=== PATIENT | male | born 1970 | race Caucasian/White ===

== ENCOUNTER 2019-03-19 07:03 | Inpatient (IN) | payer BC, SELFPAY ==
[2019-03-19] VITALS (40 sets, daily range): BP systolic 112–149; BP diastolic 67–108; PULSE 61–85; RESP 10–22; TEMP 36.4–37.4; O2SAT 95–99; BMI 29.6; BMI 28.5; BMI 28.6; BMI 29.5
--- NOTE | 2019-03-19 07:17 | EKG12_ITS ---
Test Reason : CP Blood Pressure : / mmHG Vent. Rate : 072 BPM Atrial Rate : 072 BPM P-R Int : 148 ms QRS Dur : 092 ms QT Int : 424 ms P-R-T Axes : 055 013 069 degrees QTc Int : 464 ms Sinus rhythm with occasional and consecutive Premature ventricular complexes ST elevation consider anterior injury or acute infarct ACUTE ME / STEMI Abnormal ECG No previous ECGs available Confirmed by RUPERT SEGAL ([id number]), mapping editor ADRIANNA LINDSEY ([id number]) on 04/02/2019 2:11:13 PM Referred By: Scarlet Parsons Confirmed By:RUPERT SEGAL
[2019-03-19 07:24] LABS: Absolute Lymphocyte Count 3.65 X10^3/uL (0.83-4.51); Absolute Neutrophil Count 3.5 X10^3/uL (2.0-7.7); Basophil# 0.07 X10^3/uL; Basophil% 0.9 % (0-1); Eosinophil# 0.16 X10^3/uL; Hematocrit 48.3 % (40-54); Hemoglobin 15.5 g/dL (13.0-16.5); Lymphocyte # 3.65 X10^3/ul (4.0); Lymphocyte % 44.7 % (19-41); Mean Corp Hgb Conc 32.1 g/dL (32-36); Mean Corpuscular Volume 93.6 fL (80-94); Mean Platelet Vol. 11.5 fl (6.2-12.0); Monocyte# 0.73 X10^3/uL; Monocyte% 8.9 % (0-10); NRBC Flagged by Analyzer 0 % (0-5); Neutrophil # 3.52 X10^3/uL (2.7-7.7); Platelet Count 230 K/mm3 (150-450); RBC Distribution Width CV 11.9 % (11.6-14.6); RBC Distribution Width SD 41.1 fl (35.1-43.9); Red Blood Count 5.16 M/mm3 (4.6-6.2); White Blood Count 8.2 K/mm3 (4.4-11.0)
--- NOTE | 2019-03-19 07:29 | ED.DCSUM_ITS ---
History of Present Illness Chief Complaint: Chest Pain Informant: Patient, Family Current Severity: Moderate Maximum Severity: Moderate Narrative: Patient presented with chest pain after running. He was running for about 3 miles developed chest pain and just could not run anymore. He has no back pain he has no radiation he has burning in the lower retrosternal region. He has no leg or calf pain. Past Medical History - Allergies and Home Meds Allergies/Adverse Reactions: Allergies No Known Allergies Allergy (Verified 03/19/19 07:04) Primary Care Physician: Lefty Day MD [Primary Care Provider] - Past Medical History: None Surgical History: no surgical history Lives: Spouse/ Significant Other Smoking Status: Never smoker Review of Systems All systems negative except as indicated General: Denies: Fever Eyes: Denies: Visual changes - bilaterally Cardiovascular: Reports: Chest pain. Denies: Heart racing Respiratory: Reports: Dyspnea. Denies: Cough, Sputum Gastrointestinal: Denies: Abdominal pain, Nausea, Vomiting Musculoskeletal: Denies: Myalgias, Arthralgias Skin: Denies: Abscess Neurological: Denies: Weakness Endocrine: Denies: Polydipsia Hematologic: Denies: Easy bruising Allergy: Denies: Swelling of the mouth Physical Exam Vital Signs/Narrative: Vital Signs Temp Pulse Resp Pulse Ox 03/19/19 07:04 97.5 F L 61 20 H 97 General: Well nourished, Well developed Head: Normocephalic, Atraumatic ENT: Moist mucous membranes, No rhinorrhea Neck: Supple Cardiovascular: Regular rate, Regular rhythm Respiratory: No distress, CTA bilaterally Abdomen: Soft, Nontender Back: Nontender Extremities: Nontender, No edema Skin: Normal color, No rash Neurological: Alert, Oriented x3 Psychological: Normal affect Diagnostic/Tx/Re-eval - Rhythm Strip Rhythm Strip: Sinus Rhythm Rate: 63 Ectopy: None - EKG Initial EKG Interpretation: Sinus Rhythm, - - Normal AK and QTc interval. Slight ST elevation in lead III. No reciprocal changes. Does not meet criteria for ST elevation [place] Follow-up EKG Interpretation: Sinus Rhythm, - - Rate 72. There is some artifact, however there is ST elevation in leads II, III and aVF as well as V4 V5 and V6 there are some reciprocal's in lead I and aVL although it is somewhat difficult secondary to artifact. Patient does meet criteria for ST elevation myocardial infarction. - Medical Decision Making Patient presents with chest pain that is burning after running. This is concerning, the initial EKG was somewhat abnormal, however looking at the rhythm strip there are some ST elevation in lead II. Therefore subsequent EKGs were done because of the running outside in the cold patient was shivering quite a bit and there is quite a bit of artifact. However we did get an EKG that although still short artifact did show an ST elevation myocardial infarction. [facility]per was activated. Heparin Brilinta and aspirin were given. Patient will be taken to the [facility] I talked to cardiology. Currently his vitals are normal. Disposition is to [facility], admission, condition fair - Critical Care Time Critical care time (excluding procedures): 30-74 minutes, Discussing w/Patient &/or Family/Job Estimator, Discussing w/Consultants, Arranging Admission or Transfer ED Disposition - Plan for ED Patient: Disposition: Acute Care Hospital [facility] Diagnosis: ST elevation myocardial infarction (STEMI)
[2019-03-19] MEDS: TICAGRELOR 90 MG TABLET 180 MG PO (07:32)
[2019-03-19] MEDS: Heparin Injection (Vial) 5,000 UNIT/ML VIAL 4000 UNIT IV (07:32)
[2019-03-19] MEDS: Aspirin 81 MG TAB.CHEW 324 MG PO (07:33)
[2019-03-19 07:34] LABS: Partial Thromboplast Time 27.5 Seconds (24.1-36.2); Prothrombin Time (Protime)PT. 12.5 SECONDS (11.7-14.9)
[2019-03-19 07:44] LABS: Anion Gap 12 (5-15); BUN 21 mg/dL (7-18); BUN/Creat Ratio 14.9 RATIO (10-20); Calcium,Total 8.9 mg/dL (8.5-10.1); Chloride 105 mmol/L (98-107); Creatinine, Serum 1.41 mg/dL (0.70-1.30); EST Glomerular Filtration Rate 57 mL/min (>60); Est Glom Filt Rate - Afr Amer 69 mL/min (>60); Estimated Creatinine Clearance 62.66 ml/min; Glucose 183 mg/dL (74-106); Potassium 3.6 mmol/L (3.5-5.1); Sodium Level 143 mmol/L (136-145)
--- NOTE | 2019-03-19 08:45 | EKG12_ITS ---
Test Reason : CP Blood Pressure : / mmHG Vent. Rate : 063 BPM Atrial Rate : 063 BPM P-R Int : 142 ms QRS Dur : 102 ms QT Int : 436 ms P-R-T Axes : 042 001 040 degrees QTc Int : 446 ms Normal sinus rhythm Normal ECG No previous ECGs available Confirmed by RUPERT SEGAL ([id number]), slot editor ADRIANNA LINDSEY ([id number]) on 04/02/2019 2:13:25 PM Referred By: Scarlet Parsons Confirmed By:RUPERT SEGAL
--- NOTE | 2019-03-19 08:47 | CL.I_ITS ---
Patient Name: SAWYER MCARTHUR Study Date: 03/19/2019 Performing: Reese Worrell MD Ht: 68.11 inches 173 cm : 1970 Wt: 194.01 lbs 88 kg Age: 48 Gender: male BSA: 2.02 PROCEDURE(S) PERFORMED [id number]/COR/LV IQ68-UDS, MARILY AND/OR PTCA, ARTERY OR GRAFT, SINGLE VESSEL CLINICAL PROFILE AND CO-MORBIDITIES Patient presents with STEMI for emergent cardiac cath. Heart Failure: NYHA Class: 3, Newly Diagnosed: Yes, Heart Failure Type: Systolic Stress/Imaging Stress/Image Study Performed: No Angina Classification Anginal Classification w/in 2 Weeks: CCS IV CAD Presentations: STEMI. Symptom onset Date/Time: 03/19/2019 07:00:00 Time Estimated CONCLUSIONS Single vessel CAD of the proximal LAD Non obstructive coronary arteries Successful PTCA/MARILY 75 Successful PTCA/MARILY of proximal LAD with a 4.0 x 16 Promus Synergy, 75%-->0%, no dissection. Small di stal emboli noted at terminal end of LAD, too small for PCI. RECOMMENDATIONS Referred for immediate PCI Highly recommend quitting all tobacco products Follow up with primary choker hooker Risk factor modification ASA Indefinitley Plavix for at least 12 months Routine post interventional care Refer for Outpatient Cardiac Rehab Manual sheath removal per protocol Follow up with Dr. Worrell Manual sheath removal once ACT<150 seconds. Pt is too shallow for mynx closure. DESCRIPTION OF PROCEDURE The patient arrived to the procedure lab. The risks and benefits of the procedure as well as a full d escription of our services here and lack of surgical backup were fully explained to the patient and/o r their significant other prior to the catheterization. The Timeout was completed, verifying the lanre ect patient and procedure. The patient's procedural site was prepped and draped in the usual fashion. Local anesthetic was given subcutaneously to right groin region with Lidocaine 2%. Using a modified Seldinger technique, arterial access was obtained via the right femoral artery, a 6Fr sheath was inse rted.. Left Coronary Artery selective angiography was performed in multiple views using a 4 Fr. JL5 catheter. Right Coronary Artery selective angiography was then performed in multiple views using a 4 Fr. 3DRC catheter. Left Ventriculography was performed in HINES projection using a 4 Fr. Pigtail cathet er EBU 3.75 Guide catheter was inserted and engaged into the LCA. Runthru Guide wire was advanced to the cx. EBU 3.5 Guide catheter was inserted and engaged into the LCA. Runthru Guide wire was advance d to the LAD. BMW Guide wire was advanced to the LAD. 2.0x12 Balloon catheter was inserted. PTCA ball oon inflated at 8 atms for 10 secs. Angiogram performed post balloon dilatation. 4.0x16 Synergy Drug Eluting stent was advanced across the lesion in the LAD, proximal. Angiogram performed pre stent depl oyment. Angiogram performed post stent deployment. Angiogram performed.. Arterial sheath was exchange d for a 7 Fr Sheath. The arterial sheath was sutured in place and capped CORONARY ANGIOGRAPHY DOMINANCE: Left Dominant LEFT HEART ASSESSMENT Left Ventricular Ejection Fraction: by LV Gram 50-55 % Depressed Left Ventricular systolic function Apical Hypokinesis - Mild LEFT MAIN: Angiographically normal LEFT ANTERIOR DESCENDING ARTERY: PROX LAD: Subtotal occlusion with ulcerated plaque and thrombus CIRCUMFLEX ARTERY: Mild luminal irregularities less than 30% RIGHT CORONARY ARTERY: Angiographically normal INTERVENTION INFORMATION LESION SITE: LAD (Proximal) Lesion Complexity: High/C, lesion at bifurcation: No, thrombus present: Yes, lesion length: 16 mm, cu lprit lesion: Yes Pre Stenosis: 75 % Pre intervention JASON flow: 3 PROCEDURE: Drug Eluting Stent with pre dilatation. Post Stenosis: 0 % Post intervention JASON flow: 3 Lesion Devices: Terumo .014 Runthrough Extra Floppy 180cm straight Medtronic 6 Fr EBU3.5 100cm Guide Catheter Medtronic 6 Fr. [place] AP Aspiration Catheter Eduardo Sci Synergy MR MARILY 4.00x16 Eduardo Sci EMERGE MR 2.00x12 BALLOON COMPLICATIONS PROCEDURE MEDICATIONS Fentanyl 25 mcg IV Fentanyl 25 mcg IV Oxygen: 2 L/min via nasal cannula Heparin 6000 unit(s) IV 03/19/2019 07:55:39 Nitro 200 mcg IC 03/19/2019 08:15:39 SUMMARY OF HEMODYNAMIC DATA Time AIR REST ECG 07:46:03 AO 103/75 (90) SA 07:51:24 LV 139/-23, 15 08:21:53 LV 133/-23, 14 08:22:00 LVp 134/-24, 15 08:22:09 AOp 118/68 (87) 08:22:14 Signed By Reese Worrell MD On 03/19/2019 08:46:35 Reese Worrell MD
[2019-03-19] MEDS: 0.9% Normal Saline 1,000 ML 150 ML IV (09:12)
--- NOTE | 2019-03-19 09:48 | HP.PCM_ITS ---
Problem List (1) Atherosclerosis of coronary artery of [place] heart without angina pectoris Status: Acute (2) History of coronary artery stent placement Status: Acute Comment: PCI-MARILY of proximal LAD with a 4.0 x 16 Promus Synergy Stent 03/19/19 (3) ST elevation myocardial infarction (STEMI) Status: Acute History of Present Illness Date of Admission: 03/19/19 Chief Complaint: Chest discomfort The patient is a 48 year old M in relatively good health who presented with chest discomfort. 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 He did describe his discomfort as a burning feeling. Patient in addition did experience some chills. He also did develop shortness of breath. He finally presented to the emergency department EKG obtained demonstrated features consistent with inferolateral ST segment elevation CT. Underwent emergency left heart catheterization with findings of an ulcerated plaque in his LAD. He underwent balloon angioplasty with subsequent stent placement. Admitted to the intensive care unit for further management. Past Medical History Medical History: Medical History (Last Updated 03/19/19 @ 08:52 by Jaida Garnett) Atherosclerosis of coronary artery of [place] heart without angina pectoris (Acute) I25.10 ST elevation myocardial infarction (STEMI) (Acute) Onset Date: 03/19/19 I21.3 Allergies No Known Allergies Allergy (Verified 03/19/19 07:04) Home Medications: Ambulatory Orders Medication Instructions Recorded NK 03/19/19 Surgical History: Surgical History (Last Reviewed 03/19/19 @ 12:46 by Александр Flores MD) History of coronary artery stent placement (Acute) Onset Date: 03/19/19 Z95.5 PCI-MARILY of proximal LAD with a 4.0 x 16 Promus Synergy Stent 03/19/19 Surgical History: no surgical history Lives: Spouse/ Significant Other Smoking Status: Never smoker - *Family History Maternal History Items: High Cholesterol, - Review of Systems Constitutional: Denies: Anorexia, Chills, Fever, Night Sweats, Weight Change HEENT: Denies: Head Aches, Sinus Congestion, Sinus Drainage Cardiovascular: Reports: Chest Pain. Denies: Orthopnea, Palpitations, Paroxysmal Noc. Dyspnea Respiratory: Reports: Shortness of Breath. Denies: Cough Gastrointestinal: Denies: Abdominal Pain, Hematemesis, Hematochezia, Nausea, Melena, Vomiting Genitourinary: Denies: Dysuria, Frequency, Hematuria, Urgency Musculoskeletal: Denies: Joint Pain, Joint Tenderness Skin: Denies: Rash Neurological: Denies: Focal weakness, Numbness, Tingling Psychiatric: Denies: Homicidal Ideations, Suicidal Ideations Hematologic/ Lymphatic: Denies: Easy Bruising, Easy Bleeding VTE Information - Inpt Only VTE Present on Admission: No VTE Mechan Device Prophylaxis: None VTE Pharm Prophylaxis ordered?: Yes Patient Problems: Active and Suspected Problems (Last Updated 03/19/19 @ 08:52 by Jaida Garnett) Atherosclerosis of coronary artery of [place] heart without angina pectoris (Acute) History of coronary artery stent placement (Acute 03/19/19) PCI-MARILY of proximal LAD with a 4.0 x 16 Promus Synergy Stent 03/19/19 ST elevation myocardial infarction (STEMI) (Acute 03/19/19) Objective: GENERAL: cooperative HEENT: Atraumatic; EYES; Anicteric, Normal Conjunctiva NECK; supple, normal thyroid, RESPIRATORY: Diminished to auscultation CARDIOVASCULAR: Regular S1 S2, GI: soft, normoactive bowel sounds, : No Renal angle tenderness; EXTREMITIES: No edema, no clubbing, MUSCULOSKELETAL: no muscle waisting NEURO: Awake; no lateralizing signs. SKIN: No Rash PSYCH; Flat affect - Physical Exam Vitals/I&O's: Vital Signs Temp Pulse Resp BP Pulse Ox 97.5 F L 61 20 H 133/108 H 97 03/19/19 07:04 03/19/19 07:04 03/19/19 07:04 03/19/19 07:30 03/19/19 07:04 Oxygen Flow Rate (L/min) 2 Oxygen Delivery Method Nasal Cannula Weight: 93 kg Body Mass Index (BMI) 28.5 Laboratory Results 03/19/19 07:10: WBC 8.2, RBC 5.16, Hgb 15.5, Hct 48.3, MCV 93.6, MCH 30.0, MCHC 32.1, RDW Std Deviation 41.1, RDW Coeff of Myles 11.9, Plt Count 230, MPV 11.5, Immature Gran % (Auto) 0.500, Neut % (Auto) 43.0 L, Lymph % (Auto) 44.7 H, Mora % (Auto) 8.9, Eos % (Auto) 2.0, Baso % (Auto) 0.9, Absolute Neuts (auto) 3.5, Absolute Lymphs (auto) 3.65, Nucleated RBC % 0 03/19/19 07:10: PT 12.5, INR 1.0, APTT 27.5 03/19/19 07:10: Sodium 143, Potassium 3.6, Chloride 105, Carbon Dioxide 26.0, Anion Gap 12, BUN 21 H, Creatinine 1.41 H, Estim Creat Clear Calc 62.66, Est GFR (MDRD) Af Amer 69, Est GFR (MDRD) Non-Af 57 L, BUN/Creatinine Ratio 14.9, Glucose 183 H, Calcium 8.9, Troponin I 0.035 03/19/19 09:40: Troponin I Pending Current Medications Acetaminophen (Tylenol) 650 mg PO Q6H PRN PRN PRN Reason: Pain Score 1-310 Aspirin (Ecotrin) 81 mg PO DAILY@0800 [facility] Atorvastatin Calcium (Lipitor) 80 mg PO QHS [facility] Atropine Sulfate () 0.5 mg IV UD PRN PRN Reason: HR <50 bpm Diazepam (Valium) 5 mg PO Q6H PRN PRN PRN Reason: BACK SPASMS/ANXIETY Heparin Sodium (Beef Lung) (Heparin 500 Unit/5 Ml (100/Ml)) 500 unit IV UD PRN PRN Reason: HEPARIN FLUSH Sodium Chloride () 1,000 mls @ 150 mls/hr IV .Q6H40M [facility] Stop: 03/19/19 15:16 Last Admin: 03/19/19 09:12 Dose: 150 mls/hr Documented by: Labetalol HCl (Trandate) 5 mg IV X1 PRN PRN Reason: SBP > 160 when pulling sheath Losartan Potassium (Cozaar) 12.5 mg PO DAILY [facility] Metoclopramide HCl (Reglan) 5 mg IV Q6H PRN PRN PRN Reason: NAUSEA/VOMITING Metoprolol Tartrate (Lopressor (Beta Ifeoma)) 12.5 mg PO BID [facility] Morphine Sulfate () 2 mg IV Q4H PRN PRN PRN Reason: Mild back pain (1-02/08) Nitroglycerin (Nitrostat) 0.4 mg SUBLINGUAL Q5M PRN PRN Reason: CARDIAC/CHEST PAIN Sodium Chloride () 500 ml IV BOLUS PRN PRN Reason: VASO-VAGAL PROTOCOL Sodium Chloride () 10 - 40 ml IV UD PRN PRN Reason: SALINE FLUSH Ticagrelor (Brilinta) 90 mg PO BID [facility] Assessment/Plan All Active Problems (Last Updated 03/19/19 @ 08:52 by Jaida Garnett) Atherosclerosis of coronary artery of [place] heart without angina pectoris (Acute) History of coronary artery stent placement (Acute 03/19/19) ST elevation myocardial infarction (STEMI) (Acute 03/19/19) Patient is a 48-year-old gentleman who presented with chest pain and assessment of acute ST segment elevation CT was made underwent emergency left heart catheterization with intervention 1. Acute ST segment elevation CT involving inferior lateral wall. ?Patient underwent emergency left heart catheterization on 03/19/[address] Worrell. Findings included an ulcerated plaque involving the LAD for which patient underwent balloon angioplasty with subsequent stent placement with a MARILY. Surgical admitted to the intensive care unit where patient has been started on dual antiplatelet therapy with aspirin as well as Brilinta.. Patient was also started on beta-blockers as well as ARB and statin therapy 2. Hyperglycemia ?Patient is not a known diabetic ordered hemoglobin A1c to rule out diabetes 3. Acute renal insufficiency -patient on IV fluid with subsequent monitoring of electrolyte 4. Overweight -with BMI of 28.6 weight loss advised 5. DVT prophylaxis -Lovenox Active Medications Acetaminophen (Tylenol) 650 mg PO Q6H PRN PRN PRN Reason: Pain Score 1-3/10 Albuterol Sulfate (Ventolin Aerosols) 2.5 mg INHALATION Q2H PRN PRN PRN Reason: SOB/Wheezing Aspirin (Ecotrin) 81 mg PO DAILY@0800 [facility] Atorvastatin Calcium (Lipitor) 80 mg PO QHS [facility] Atropine Sulfate () 0.5 mg IV UD PRN PRN Reason: HR <50 bpm Diazepam (Valium) 5 mg PO Q6H PRN PRN PRN Reason: BACK SPASMS/ANXIETY Enoxaparin Sodium (Lovenox) 40 mg SC DAILY@1000 [facility] Famotidine (Pepcid) 20 mg PO BID [facility] Guaifenesin (Robitussin) 10 ml PO Q4H PRN PRN PRN Reason: COUGH Heparin Sodium (Beef Lung) (Heparin 500 Unit/5 Ml (100/Ml)) 500 unit IV UD PRN PRN Reason: HEPARIN FLUSH Sodium Chloride () 1,000 mls @ 150 mls/hr IV .Q6H40M [facility] Stop: 03/19/19 15:16 Last Admin: 03/19/19 09:12 Dose: 150 mls/hr Documented by: Influenza Virus Vaccine Quadrival (Flucelvax /Fluzone ) 0.5 ml IM .ONCE ONE Stop: 03/19/19 12:41 Labetalol HCl (Trandate) 5 mg IV X1 PRN PRN Reason: SBP > 160 when pulling sheath Losartan Potassium (Cozaar) 12.5 mg PO DAILY [facility] Magnesium Hydroxide (Milk Of Magnesia) 30 ml PO DAILY PRN PRN PRN Reason: Constipation Melatonin (Melatonin) 3 mg PO QHS PRN PRN PRN Reason: INSOMNIA Metoclopramide HCl (Reglan) 5 mg IV Q6H PRN PRN PRN Reason: NAUSEA/VOMITING Metoprolol Tartrate (Lopressor (Beta Ifeoma)) 12.5 mg PO BID [facility] Morphine Sulfate () 2 mg IV Q4H PRN PRN PRN Reason: Mild back pain (1-10/10) Nitroglycerin (Nitrostat) 0.4 mg SUBLINGUAL Q5M PRN PRN Reason: CARDIAC/CHEST PAIN Ondansetron HCl (Zofran) 4 mg IV Q8H PRN PRN PRN Reason: NAUSEA/VOMITING Oxycodone HCl (Oxyir) 5 mg PO Q4H PRN PRN PRN Reason: Pain Score 4-5/10 Sodium Chloride () 500 ml IV BOLUS PRN PRN Reason: VASO-VAGAL PROTOCOL Sodium Chloride () 10 - 40 ml IV UD PRN PRN Reason: SALINE FLUSH Last Admin: 03/19/19 11:53 Dose: 40 ml Documented by: Ticagrelor (Brilinta) 90 mg PO BID [facility] Code Visit Inpatient E&M: 97236 Init Hosp L3
--- NOTE | 2019-03-19 10:00 | EKG12_ITS ---
Test Reason : POST PCI Blood Pressure : / mmHG Vent. Rate : 074 BPM Atrial Rate : 074 BPM P-R Int : 136 ms QRS Dur : 096 ms QT Int : 404 ms P-R-T Axes : 051 -02 039 degrees QTc Int : 448 ms Normal sinus rhythm Normal ECG When compared with ECG of 19-MAR-2019 07:26, MANUAL COMPARISON REQUIRED, DATA IS UNCONFIRMED Confirmed by RUPERT SEGAL ([id number]), editor city ADRIANNA LINDSEY ([id number]) on 04/02/2019 2:10:14 PM Referred By: Scarlet Parsons Confirmed By:RUPERT SEGAL
[2019-03-19 10:06] LABS: ACT Activated Clotting Time 257 sec (74-137)
[2019-03-19 10:06] LABS: ACT Activated Clotting Time 175 sec (74-137)
[2019-03-19 10:45] LABS: ACT Activated Clotting Time 180 sec (74-137)
[2019-03-19] MEDS: 0.9% Saline Lock 10 ML Syringe IV ×2 (11:53→17:10)
[2019-03-19 12:36] LABS: Bedside Glucose 115 mg/dL (70-110)
--- NOTE | 2019-03-19 13:27 | CRPHASE1 ---
Patient Communication PHII Cardiac Rehab Discussed with Patient:: Yes Guide to Cardiac Rehab Given to Patient:: Yes Cardiac Rehab Facility Choice List Given to Patient:: Yes - [facility] Choice Program [facility] CR PHII:: Communication Given to CR 8Th Grade Teacher:: Reese Worrell Sessions:: 36 sessions - 3 days/wk, 12 weeks Risk Factors/Lifestyle Smoking Status: Never smoker Hx Hypertension: No Hx Diabetes Mellitus Type 2: No Height: 1.73 m Weight:: 88.5 kg BMI: 29.5 Stress: Work-related ETOH: No Caffeine: Yes Substance Abuse: No Risk Factor for Sedentary Lifestyle: Lowest Risk Phase I Education Given On:: [place] Issues Affecting Care:: None Knowledge of Condition:: Yes Hospital Course Pain Description: Sharp, Tightness Pain Intensity: 3 Cardiac Cath Date:: 03/19/19 Medical/Surgical History IA:: Yes Angina:: Yes Discharge/Home/Social Eval Discharge Disposition: Home Marital Status: Cardiac Rehabilitation Info Cardiac Rehabilitation Program Information: Cardiac Rehabilitation is important for patients like you who are recovering from a heart problem. Cardiac rehabilitation programs are recognized as integral to the continued care of the patient with coronary heart disease. The cardiac rehabilitation program is designed to optimize a patient's physical, psychological, and social functioning. Health anesthesiologist and critical care work in cardiac rehabilitation programs and assist you with getting the treatments you need to get stronger and healthier - like exercise, healthy eating habits, and medications. Cardiac rehabilitation has been show to help people with heart problems live longer and have better life enjoyment than people who do not go to cardiac rehabilitation. Please contact the Cardiac Rehabilitation Program at [facility] at in two weeks if you have not heard from them.
--- NOTE | 2019-03-19 13:31 | CRPH1.INSTRU ---
General Education CAD and cardiac anatomy and function:: Patient communicates acknowledgment Explanation of diagnoses and procedures:: Patient communicates acknowledgment Sign/Symptoms of SC:: Not instructed Antiplatelet therapy: Not instructed Proper use of NTG-SL: Not instructed Emergency procedures and activation of EMS: Not instructed Compliance of all prescribed medications: Not instructed Smoking Patient Nicotine/Smoking Risk Factors Are:: Never smoked Dyslipidemia Recommendations Include:: Lipid profile not available Overweight/Obesity Patient Overweight/Obesity Risk Factors Are:: Overweight = 26-29 Hypertension Patient Hypertension Risk Factors Are:: No documented hx of HTN Heart Disease Heart Disease Response Code:: Patient communicates acknowledgment Diabetes Patient Diabetes Risk Factors Are:: No documented hx of diabetes Metabolic Syndrome Metabolic Syndrome Response Code:: Not instructed Sedentary Recommendations Include:: Monitored Outpatient Cardiac Rehab Sedentary Response Code:: Patient communicates acknowledgment Stress Stress Response Code:: Patient communicates acknowledgment
[2019-03-19] MEDS: Metoprolol Tartrate 25 MG Tablet 12.5 MG PO ×2 (13:32→21:35)
[2019-03-19] MEDS: Losartan Potassium 25 MG Tablet 12.5 MG PO (13:32)
[2019-03-19 13:52] LABS: Hemoglobin A1c 5.6 % (4.2-6.3)
--- NOTE | 2019-03-19 14:21 | CHAPLAIN ---
Type of Pastoral Visit _x__ Initial Visit ___ Follow-up Visit ___ On-call Visit ___ General Patient Visit ___ Spiritual Assessment ___ Family Conference ___ Bereavement ___ Rapid Response ___ Code Blue ___ Other (describe below) Pastoral Care Referral From _x__ Patient _x__ Family ___ Nurse ___ Physician ___ Reproduction Specialist ___ Tie Cutter ___ Other (describe below) Sacrament/Intervention _x__ Active listening ___ Anointing ___ Confucianism ___ Bereavement ___ Communion ___ Heather exploration ___ ___ Life review _x__ Prayer ___ Reconciliation ___ Sacrament of Sick _x__ Supportive presence ___ Wedding ___ Other (describe below) Pastoral Comments
[2019-03-19 16:32] LABS: Cholesterol 229 mg/dL (200); High Density Lipoprotein 57 mg/dL; Triglycerides 83 mg/dL; Very Low Density Lipoprotein 17 mg/dL (5-40)
[2019-03-19 17:16] LABS: ACT Activated Clotting Time 158 sec (74-137)
[2019-03-19] MEDS: Famotidine 20 MG Tablet PO (21:35)
[2019-03-19] MEDS: TICAGRELOR 90 MG TABLET PO (21:35)
[2019-03-19] MEDS: Atorvastatin Calcium 80 MG Tablet PO (21:35)
[2019-03-19] MEDS: MELATONIN 3 MG TABLET PO (23:52)
[2019-03-20] VITALS (20 sets, daily range): BP systolic 104–142; BP diastolic 63–102; PULSE 56–86; RESP 12–25; TEMP 36.6–37.2; O2SAT 93–99
[2019-03-20 04:31] LABS: Hematocrit 42.2 % (40-54); Hemoglobin 13.9 g/dL (13.0-16.5); Mean Corp Hgb Conc 32.9 g/dL (32-36); Mean Corpuscular Hgb 30.5 pg (27.0-32.0); Mean Corpuscular Volume 92.5 fL (80-94); Mean Platelet Vol. 11.6 fl (6.2-12.0); Platelet Count 197 K/mm3 (150-450); RBC Distribution Width CV 12.1 % (11.6-14.6); RBC Distribution Width SD 41.6 fl (35.1-43.9); Red Blood Count 4.56 M/mm3 (4.6-6.2); White Blood Count 12.4 K/mm3 (4.4-11.0)
[2019-03-20 05:30] LABS: ALB/GLOB Ratio 1.1 RATIO (0.9-2.4); AST(SGOT) 164 U/L (15-37); Alanine Aminotransfer ALT/SGPT 44 U/L (16-61); Albumin, Serum 3.3 g/dL (3.2-5.0); Alkaline Phosphatase 96 U/L (45-117); Anion Gap 5 (5-15); BUN 9 mg/dL (7-18); Calcium,Total 8.4 mg/dL (8.5-10.1); Chloride 105 mmol/L (98-107); EST Glomerular Filtration Rate 85 mL/min (>60); Est Glom Filt Rate - Afr Amer 103 mL/min (>60); Estimated Creatinine Clearance 88.35 ml/min; Glucose 109 mg/dL (74-106); Potassium 3.9 mmol/L (3.5-5.1); Protein, Total 6.3 g/dL (6.4-8.2); Sodium Level 137 mmol/L (136-145)
--- NOTE | 2019-03-20 07:14 | PN_ITS ---
Patient Problems: Active and Suspected Problems (Last Updated 03/19/19 @ 08:52 by Jaida Garnett) Atherosclerosis of coronary artery of [place] heart without angina pectoris (Acute) History of coronary artery stent placement (Acute 03/19/19) PCI-MARILY of proximal LAD with a 4.0 x 16 Promus Synergy Stent 03/19/19 ST elevation myocardial infarction (STEMI) (Acute 03/19/19) Subjective: CC; f/u Acute ST segment elevation PA involving inferior lateral wall Occasional PVCs during the night denies chest pain this a.m. Objective: GENERAL: cooperative HEENT: Atraumatic; EYES; Anicteric, Normal Conjunctiva NECK; supple, normal thyroid, RESPIRATORY: Diminished to auscultation CARDIOVASCULAR: Regular S1 S2, GI: soft, normoactive bowel sounds, : No Renal angle tenderness; EXTREMITIES: No edema, no clubbing, MUSCULOSKELETAL: no muscle waisting NEURO: Awake; no lateralizing signs. SKIN: No Rash PSYCH; Flat affect Vitals/I&O's: Vital Signs Temp Pulse Resp BP Pulse Ox 98.4 F 60 19 H 126/88 H 96 03/20/19 04:00 03/20/19 06:00 03/20/19 06:00 03/20/19 06:00 03/20/19 06:00 Oxygen Flow Rate (L/min) 2 Oxygen Delivery Method Room Air Weight: 89.1 kg Body Mass Index (BMI) 28.5 Intake and Output for Last 24 Hours 03/18/19 03/19/19 03/20/19 23:59 23:59 23:59 Intake Total 2100 / 2100 240 / 240 Output Total 1095 / 1095 620 / 620 Balance 1005 / 1005 -380 / -380 Laboratory Results 03/19/19 07:10: WBC 8.2, RBC 5.16, Hgb 15.5, Hct 48.3, MCV 93.6, MCH 30.0, MCHC 32.1, RDW Std Deviation 41.1, RDW Coeff of Myles 11.9, Plt Count 230, MPV 11.5, Immature Gran % (Auto) 0.500, Neut % (Auto) 43.0 L, Lymph % (Auto) 44.7 H, Adams % (Auto) 8.9, Eos % (Auto) 2.0, Baso % (Auto) 0.9, Absolute Neuts (auto) 3.5, Absolute Lymphs (auto) 3.65, Nucleated RBC % 0 03/19/19 07:10: PT 12.5, INR 1.0, APTT 27.5 03/19/19 07:10: Sodium 143, Potassium 3.6, Chloride 105, Carbon Dioxide 26.0, Anion Gap 12, BUN 21 H, Creatinine 1.41 H, Estim Creat Clear Calc 62.66, Est GFR (MDRD) Af Amer 69, Est GFR (MDRD) Non-Af 57 L, BUN/Creatinine Ratio 14.9, Glucose 183 H, Calcium 8.9, Troponin I 0.035 03/19/19 07:10: Hemoglobin A1c 5.6 03/19/19 07:52: Activated Clotting Time 175 H 03/19/19 08:21: Activated Clotting Time 257 H 03/19/19 09:40: Troponin I 0.906 H* 03/19/19 10:33: Activated Clotting Time 180 H 03/19/19 11:24: Activated Clotting Time 158 H 03/19/19 12:33: POC Glucose 115 H 03/19/19 13:25: Troponin I 6.690 H* 03/19/19 13:25: Triglycerides 83, Cholesterol 229 H, LDL Cholesterol 155 H, VLDL Cholesterol 17, HDL Cholesterol 57 03/19/19 16:00: Troponin I 14.300 H* 03/20/19 04:20: WBC 12.4 H, RBC 4.56 L, Hgb 13.9, Hct 42.2, MCV 92.5, MCH 30.5, MCHC 32.9, RDW Std Deviation 41.6, RDW Coeff of Myles 12.1, Plt Count 197, MPV 11.6 03/20/19 04:20: Sodium 137, Potassium 3.9, Chloride 105, Carbon Dioxide 27.0, Anion Gap 5, BUN 9, Creatinine 1.00, Estim Creat Clear Calc 88.35, Est GFR (MDRD) Af Amer 103, Est GFR (MDRD) Non-Af 85, BUN/Creatinine Ratio 9.0 L, Glucose 109 H, Calcium 8.4 L, Total Bilirubin 0.70, AST 164 H, ALT 44, Alkaline Phosphatase 96, Total Protein 6.3 L, Albumin 3.3, Globulin 3.0, Albumin/Globulin Ratio 1.1 Current Medications Acetaminophen (Tylenol) 650 mg PO Q6H PRN PRN PRN Reason: Pain Score 1-3/10 Albuterol Sulfate (Ventolin Aerosols) 2.5 mg INHALATION Q2H PRN PRN PRN Reason: SOB/Wheezing Aspirin (Ecotrin) 81 mg PO DAILY@0800 [facility] Atorvastatin Calcium (Lipitor) 80 mg PO QHS [facility] Last Admin: 03/19/19 21:35 Dose: 80 mg Documented by: Atropine Sulfate () 0.5 mg IV UD PRN PRN Reason: HR <50 bpm Diazepam (Valium) 5 mg PO Q6H PRN PRN PRN Reason: BACK SPASMS/ANXIETY Famotidine (Pepcid) 20 mg PO BID [facility] Last Admin: 03/19/19 21:35 Dose: 20 mg Documented by: Guaifenesin (Robitussin) 10 ml PO Q4H PRN PRN PRN Reason: COUGH Heparin Sodium (Beef Lung) (Heparin 500 Unit/5 Ml (100/Ml)) 500 unit IV UD PRN PRN Reason: HEPARIN FLUSH Influenza Virus Vaccine Quadrival (Flucelvax /Fluzone ) 0.5 ml IM .ONCE ONE Stop: 03/20/19 10:01 Labetalol HCl (Trandate) 5 mg IV X1 PRN PRN Reason: SBP > 160 when pulling sheath Losartan Potassium (Cozaar) 12.5 mg PO DAILY [facility] Last Admin: 03/19/19 13:32 Dose: 12.5 mg Documented by: Magnesium Hydroxide (Milk Of Magnesia) 30 ml PO DAILY PRN PRN PRN Reason: Constipation Melatonin (Melatonin) 3 mg PO QHS PRN PRN PRN Reason: INSOMNIA Last Admin: 03/19/19 23:52 Dose: 3 mg Documented by: Metoclopramide HCl (Reglan) 5 mg IV Q6H PRN PRN PRN Reason: NAUSEA/VOMITING Metoprolol Tartrate (Lopressor (Beta Ifeoma)) 12.5 mg PO BID [facility] Last Admin: 03/19/19 21:35 Dose: 12.5 mg Documented by: Morphine Sulfate () 2 mg IV Q4H PRN PRN PRN Reason: Mild back pain (1-10/10) Nitroglycerin (Nitrostat) 0.4 mg SUBLINGUAL Q5M PRN PRN Reason: CARDIAC/CHEST PAIN Ondansetron HCl (Zofran) 4 mg IV Q8H PRN PRN PRN Reason: NAUSEA/VOMITING Oxycodone HCl (Oxyir) 5 mg PO Q4H PRN PRN PRN Reason: Pain Score 4-10/10 Sodium Chloride () 500 ml IV BOLUS PRN PRN Reason: VASO-VAGAL PROTOCOL Sodium Chloride () 10 - 40 ml IV UD PRN PRN Reason: SALINE FLUSH Last Admin: 03/19/19 17:10 Dose: 10 ml Documented by: Ticagrelor (Brilinta) 90 mg PO BID [facility] Last Admin: 03/19/19 21:35 Dose: 90 mg Documented by: STROKE Vital Signs/Narrative: Vital Signs Temp Pulse Resp BP Pulse Ox 03/20/19 06:00 60 19 H 126/88 H 96 03/20/19 05:00 57 L 14 127/86 H 93 03/20/19 04:00 98.4 F 86 25 H 104/63 99 03/20/19 03:31 56 L Medical Necessity - Tobacco Use Smoking Status: Never smoker Assessment/Plan All Active Problems (Last Updated 03/19/19 @ 08:52 by Jaida Garnett) Atherosclerosis of coronary artery of [place] heart without angina pectoris (Acute) History of coronary artery stent placement (Acute 03/19/19) ST elevation myocardial infarction (STEMI) (Acute 03/19/19) Patient is a 48-year-old gentleman who presented with chest pain and assessment of acute ST segment elevation PA was made underwent emergency left heart catheterization with intervention 1. Acute ST segment elevation PA involving inferior lateral wall. ?Patient underwent emergency left heart catheterization on 03/19/[address] Worrell. Findings included an ulcerated plaque involving the LAD for which patient underwent balloon angioplasty with subsequent stent placement with a MARILY. Surgical admitted to the intensive care unit where patient has been started on dual antiplatelet therapy with aspirin as well as Brilinta.. Patient was also started on beta-blockers as well as ARB and statin therapy 2. Hyperglycemia ?Patient is not a known diabetic ordered hemoglobin A1c to rule out diabetes -Hemoglobin A1c was 5.6 3. Acute renal insufficiency -patient on IV fluid with subsequent monitoring of electrolyte?kidney function improved with rehydration 4. Dyslipidemia ~ with LDL of 155 patient started on high-dose statin therapy 5. Overweight with BMI of 28.6 weight loss advised 6. DVT prophylaxis -Lovenox Code Visit Inpatient E&M: 22308 Subs Hosp L2
--- NOTE | 2019-03-20 08:00 | ECHOCS_ITS ---
Reason For Study: S/P CT Procedure This was a 2D Doppler, Color Flow transthoracic echocardiogram. The study was technically difficult. Contrast injection was performed. Exam performed portable in ICU/CCU. Left Ventricle Normal size and thickness. The estimated ejection fraction is 65 %. Normal diastology for age. Inferior [place] : Mildly hypokinetic. Right Ventricle Normal size and thickness. A moderator band is seen in the right ventricle. Normal systolic function. Atria Normal left atrium. Normal right atrium. Normal atrial septum. Mitral Valve The mitral valve is structurally normal. No prolapse or stenosis seen. Tricuspid Valve Normal tricuspid valve. Trivial tricuspid valve insufficiency. Right ventricular systolic pressure estimated to be 30 mmHg. Aortic Valve Normal aortic valve. Trisinus/trileaflet aortic valve. Pulmonic Valve Normal pulmonic valve. Great Vessels Normal aortic root. Normal arch. Normal inferior vena cava. Inferior vena cava collapse with sniff. Pericardium/Pleural No pericardial effusion. Medication Diluted definity 3.0ml given slow IV push to enhance endocardial definition. MMode/2D Measurements & Calculations LVIDd: 5.0 cm IVSd: 1.2 cm Ao root diam: 3.3 cm LVIDs: 3.6 cm LVPWd: 0.95 cm RVDd: 4.0 cm FS: 27.8 % LAV(MOD-bp): 50.0 ml LA A4 area: 17.6 cm2 LA dimension(2D): 3.9 cm LAV(MOD-bp) Indexed: 24.7 ml/m2 LAV(MOD-sp2): 49.1 ml LAV(MOD-sp4): 49.0 ml RA A4 area: 15.1 cm2 Time Measurements MV dec time: 0.20 sec Doppler Measurements & Calculations MV E max serafin: 82.9 cm/sec Lat Peak E' Serafin: 14.2 cm/sec Med Peak E' Serafin: 10.5 cm/sec MV A max serafin: 46.5 cm/sec E/E' lat: 5.8 E/E' med: 7.9 MV E/A: 1.8 Ao V2 max: 114.6 cm/sec LV V1 max: 98.3 cm/sec PA V2 max: 90.1 cm/sec Ao max P.3 mmHg LV V1 max P.9 mmHg TR max serafin: 251.3 cm/sec TR max P.3 mmHg Interpretation Summary The estimated ejection fraction is 65 %. Normal diastology for age. Inferior [place] : Mildly hypokinetic Trivial tricuspid valve insufficiency. Right ventricular systolic pressure estimated to be 30 mmHg. The study was technically difficult. Contrast injection was performed. There is no comparison study available. Ordering Physician: Reese Worrell Referring Physician: Lefty Day Performed By: Margarita Aguilar, RDCS, RVT
--- NOTE | 2019-03-20 08:35 | PCM.PN.CARD ---
Subjectve: Patient feeling much better today, no 24-hour events. Telemetry showed normal sinus rhythm with rare PVCs. EKG shows normal sinus rhythm with resolved anterior ST elevation inferior Q waves. Peak troponin was 18.3. Right groin is clean/dry/intact without evidence of thrills, bruits or hematoma. There is some small amount of ecchymosis in the superficial portion of his skin, but is minimal. He denies any chest pain feels much better. Objective: Vital Signs Temp Pulse Resp BP Pulse Ox 98.4 F 56 L 12 123/89 H 97 03/20/19 04:00 03/20/19 07:00 03/20/19 07:00 03/20/19 07:00 03/20/19 07:00 Oxygen Flow Rate (L/min) 2 Oxygen Delivery Method Room Air Weight: 196 lb 6.91 oz Body Mass Index (BMI) 28.5 Intake and Output for Last 24 Hours 03/18/19 03/19/19 03/20/19 23:59 23:59 23:59 Intake Total 2100 / 2100 240 / 240 Output Total 1095 / 1095 620 / 620 Balance 1005 / 1005 -380 / -380 General: Awake, Alert, Oriented x 3 HEENT: PERRL, EOMI, Sclera Non Icteric Neck: Supple, Good ROM, No Lymph Node Enlargement Lungs: Clear to auscultation Cardiovascular: Regular Rhythm, Normal S1, Normal S2, No Murmurs, No Rubs, No Gallops Vascular: No Carotid Bruits, Normal Femoral Pulses, Normal Radial Pulses, Normal Dorsalis Pedal Pulse, Normal Posterior Tibial Pulses Abdomen: Bowel Sounds Present, Soft, Non Tender, No HSM, No Organomegaly Extremities: No Cyanosis, No Clubbing, No edema Neurological: No Focal Motor or Sensory Deficit 03/19/19 07:10: Hemoglobin A1c 5.6 03/19/19 09:40: Troponin I 0.906 H* 03/19/19 13:25: Troponin I 6.690 H* 03/19/19 13:25: Triglycerides 83, Cholesterol 229 H, LDL Cholesterol 155 H, VLDL Cholesterol 17, HDL Cholesterol 57 03/19/19 16:00: Troponin I 14.300 H* 03/20/19 04:20: WBC 12.4 H, RBC 4.56 L, Hgb 13.9, Hct 42.2, MCV 92.5, MCH 30.5, MCHC 32.9, Plt Count 197, MPV 11.6 03/20/19 04:20: Sodium 137, Potassium 3.9, Chloride 105, Carbon Dioxide 27.0, Anion Gap 5, BUN 9, Creatinine 1.00, Est GFR (MDRD) Af Amer 103, Est GFR (MDRD) Non-Af 85, BUN/Creatinine Ratio 9.0 L, Glucose 109 H, Calcium 8.4 L, Total Bilirubin 0.70 Rhythm: EKG: ECHO: Pending Stress Test: Cardiac Cath: PCI: CT Surgery: Holter monitor: EPS: PPM: CXR: Chest CT Scan: Medical Necessity - Tobacco Use Smoking Status: Never smoker Assessment/Plan 1. Coronary artery disease: Patient feels much better status post angioplasty and drug-eluting stent to the proximal LAD. The patient had some minimal distal downstream embolization which unfortunately could not be avoided despite nicardipine therapy. His peak troponin is 14.3. He has had essentially normal sinus rhythm/sinus bradycardia and occasional PVCs overnight. Recommend the patient continue baby aspirin, Plavix, Lopressor and Cozaar. He will undergo a 2D echo with Doppler to document his LV function today and a repeat one at the conclusion of cardiac rehab. Would recommend the patient be transferred out of the ICU to stepdown for an additional 24 hours to monitor for possible arrhythmias. If no means occur over the next 24 hours, the patient may be discharged home on beta-aletha therapy. In addition we will reduce his Lopressor to 12.5 mg p.o. twice daily given his bradycardia which is most likely a result of his significant exercise activity. 2. Hyperlipidemia: Patient started on high-dose lipid lowering statin therapy of Lipitor 80 mill grams p.o. nightly. Repeat lipids in 6 weeks time. 3. [facility] 4. Thank you very much for the opportunity to participate in the cardiac care of your patient. Code Visit Inpatient E&M: 96161 Subs Hosp L2
[2019-03-20] MEDS: Metoprolol Tartrate 25 MG Tablet 12.5 MG PO ×2 (09:08→21:01)
[2019-03-20] MEDS: Losartan Potassium 25 MG Tablet 12.5 MG PO (09:08)
[2019-03-20] MEDS: TICAGRELOR 90 MG TABLET PO ×2 (09:09→21:01)
[2019-03-20] MEDS: Aspirin E.C. 81 MG Tablet PO (09:09)
[2019-03-20] MEDS: Famotidine 20 MG Tablet PO ×2 (09:09→21:01)
--- NOTE | 2019-03-20 10:00 | EKG12_ITS ---
Test Reason : Blood Pressure : / mmHG Vent. Rate : 061 BPM Atrial Rate : 061 BPM P-R Int : 134 ms QRS Dur : 106 ms QT Int : 426 ms P-R-T Axes : 049 -10 017 degrees QTc Int : 428 ms Normal sinus rhythm Normal ECG When compared with ECG of 19-MAR-2019 09:06, MANUAL COMPARISON REQUIRED, DATA IS UNCONFIRMED Confirmed by JOAN BERRY, MOHAMUD ([id number]), slot editor ADRIANNA LINDSEY ([id number]) on 04/02/2019 1:52:48 PM Referred By: Scarlet Parsons Confirmed By:MOHAMUD FRANCO MD
--- NOTE | 2019-03-20 12:16 | CHAPLAIN ---
Type of Pastoral Visit ___ Initial Visit _x__ Follow-up Visit ___ On-call Visit ___ General Patient Visit ___ Spiritual Assessment ___ Family Conference ___ Bereavement ___ Rapid Response ___ Code Blue ___ Other (describe below) Pastoral Care Referral From _x__ Patient _x__ Family ___ Nurse ___ Physician ___ Grout Pump Operator ___ Collection Advisor ___ Other (describe below) Sacrament/Intervention _x__ Active listening ___ Anointing ___ Mandaeism ___ Bereavement ___ Communion ___ Heather exploration ___ ___ Life review ___ Prayer ___ Reconciliation ___ Sacrament of Sick ___ Supportive presence ___ Wedding ___ Other (describe below) Pastoral Comments
--- NOTE | 2019-03-20 12:22 | CASEMGMT ---
RN CM Assessment Presentation: STEMI Intro role of CM and purpose of RN CM assessment. Demographics, PCP and Pharmacy verified. Pt is independent, no dc needs identified, works and states no concerns re: dc. PCP: Dr. Lefty Day Specialists: Dr. Worrell, cardiology [facility]. Reviewed local pharmacies with pt and his . [facility] chosen. Insurance: [place] Prescription Benefit: yes. Brilinta savings card explained. Reviewed insurance card with pt as he has not been on medications prior to admission. Pt does have pharmacy benefits, and will be eligible for benefits on savings card. LNOK: Radha [place] Living Arrangements: Lives independently, Transportation: drives or can drive DME: none HHC: none Patient DC goals: Home DC PLAN: Home on discharge. Ani HAWK BSN ACM
[2019-03-20] MEDS: Atorvastatin Calcium 80 MG Tablet PO (21:01)
[2019-03-21 03:00] VITALS: BP 110/73; PULSE 62; RESP 18; TEMP 36.8; O2SAT 97
[2019-03-21 03:03] VITALS: PULSE 67
[2019-03-21 06:51] VITALS: PULSE 63
--- NOTE | 2019-03-21 07:32 | DS.PCM_ITS ---
Discharge Date and Diagnosis - Problem List Patient Problems: Active and Suspected Problems (Last Updated 03/19/19 @ 08:52 by Jaida Garnett) Atherosclerosis of coronary artery of [place] heart without angina pectoris (Acute) History of coronary artery stent placement (Acute 03/19/19) PCI-MARILY of proximal LAD with a 4.0 x 16 Promus Synergy Stent 03/19/19 ST elevation myocardial infarction (STEMI) (Acute 03/19/19) Date of Admission: 03/19/19 Date of Discharge: 03/21/19 - Primary Discharge Diagnosis Active and Suspected Problems (Last Updated 03/19/19 @ 08:52 by Jaida Garnett) Atherosclerosis of coronary artery of [place] heart without angina pectoris (Acute) History of coronary artery stent placement (Acute 03/19/19) PCI-MARILY of proximal LAD with a 4.0 x 16 Promus Synergy Stent 03/19/19 ST elevation myocardial infarction (STEMI) (Acute 03/19/19) Hospital Course and Treatment Summary of Care Provided: The patient is a 48-year-old gentleman who presented with chest pain and assessment of acute ST segment elevation MA was made underwent emergency left heart catheterization with intervention 1. Acute ST segment elevation MA involving inferior lateral wall. ?Patient underwent emergency left heart catheterization on 03/19/[address] Worrell. Findings included an ulcerated plaque involving the LAD for which patient underwent balloon angioplasty with subsequent stent placement with a MARILY. Surgical admitted to the intensive care unit where patient has been started on dual antiplatelet therapy with aspirin as well as Brilinta.. Patient was also started on beta-blockers as well as ARB and statin therapy 2. Hyperglycemia ?Patient is not a known diabetic ordered hemoglobin A1c to rule out diabetes -Hemoglobin A1c was 5.6 3. Acute renal insufficiency -patient on IV fluid with subsequent monitoring of electrolyte?kidney function improved with rehydration 4. Dyslipidemia ~ with LDL of 155 patient started on high-dose statin therapy 5. Overweight with BMI of 28.6 weight loss advised 6. DVT prophylaxis -Lovenox Patient Problems: Active and Suspected Problems (Last Updated 03/19/19 @ 08:52 by Jaida Garnett) Atherosclerosis of coronary artery of [place] heart without angina pectoris (Acute) History of coronary artery stent placement (Acute 03/19/19) PCI-MARILY of proximal LAD with a 4.0 x 16 Promus Synergy Stent 03/19/19 ST elevation myocardial infarction (STEMI) (Acute 03/19/19) Objective: GENERAL: cooperative HEENT: Atraumatic; EYES; Anicteric, Normal Conjunctiva NECK; supple, normal thyroid, NEURO: Awake; no lateralizing signs. SKIN: No Rash - Physical Exam Vitals/I&O's: Vital Signs Temp Pulse Resp BP Pulse Ox 98.3 F 63 18 110/73 97 03/21/19 03:00 03/21/19 06:51 03/21/19 03:00 03/21/19 03:00 03/21/19 03:00 Oxygen Flow Rate (L/min) 2 Oxygen Delivery Method Room Air Weight: 89.1 kg Body Mass Index (BMI) 28.5 Intake and Output for Last 24 Hours 03/19/19 03/20/19 03/21/19 23:59 23:59 23:59 Intake Total 2100 / 2100 1720 / 1720 240 / 240 Output Total 1095 / 1095 620 / 620 Balance 1005 / 1005 1100 / 1100 240 / 240 Current Medications Acetaminophen (Tylenol) 650 mg PO Q6H PRN PRN PRN Reason: Pain Score 1-3/10 Albuterol Sulfate (Ventolin Aerosols) 2.5 mg INHALATION Q2H PRN PRN PRN Reason: SOB/Wheezing Aspirin (Ecotrin) 81 mg PO DAILY@0800 [facility] Last Admin: 03/20/19 09:09 Dose: 81 mg Documented by: Atorvastatin Calcium (Lipitor) 80 mg PO QHS [facility] Last Admin: 03/20/19 21:01 Dose: 80 mg Documented by: Atropine Sulfate () 0.5 mg IV UD PRN PRN Reason: HR <50 bpm Diazepam (Valium) 5 mg PO Q6H PRN PRN PRN Reason: BACK SPASMS/ANXIETY Famotidine (Pepcid) 20 mg PO BID [facility] Last Admin: 03/20/19 21:01 Dose: 20 mg Documented by: Guaifenesin (Robitussin) 10 ml PO Q4H PRN PRN PRN Reason: COUGH Heparin Sodium (Beef Lung) (Heparin 500 Unit/5 Ml (100/Ml)) 500 unit IV UD PRN PRN Reason: HEPARIN FLUSH Labetalol HCl (Trandate) 5 mg IV X1 PRN PRN Reason: SBP > 160 when pulling sheath Losartan Potassium (Cozaar) 12.5 mg PO DAILY [facility] Last Admin: 03/20/19 09:08 Dose: 12.5 mg Documented by: Magnesium Hydroxide (Milk Of Magnesia) 30 ml PO DAILY PRN PRN PRN Reason: Constipation Melatonin (Melatonin) 3 mg PO QHS PRN PRN PRN Reason: INSOMNIA Last Admin: 03/19/19 23:52 Dose: 3 mg Documented by: Metoclopramide HCl (Reglan) 5 mg IV Q6H PRN PRN PRN Reason: NAUSEA/VOMITING Metoprolol Tartrate (Lopressor (Beta Ifeoma)) 12.5 mg PO BID [facility] Last Admin: 03/20/19 21:01 Dose: 12.5 mg Documented by: Morphine Sulfate () 2 mg IV Q4H PRN PRN PRN Reason: Mild back pain (1-10/10) Nitroglycerin (Nitrostat) 0.4 mg SUBLINGUAL Q5M PRN PRN Reason: CARDIAC/CHEST PAIN Ondansetron HCl (Zofran) 4 mg IV Q8H PRN PRN PRN Reason: NAUSEA/VOMITING Oxycodone HCl (Oxyir) 5 mg PO Q4H PRN PRN PRN Reason: Pain Score 4-10/10 Sodium Chloride () 500 ml IV BOLUS PRN PRN Reason: VASO-VAGAL PROTOCOL Sodium Chloride () 10 - 40 ml IV UD PRN PRN Reason: SALINE FLUSH Last Admin: 03/19/19 17:10 Dose: 10 ml Documented by: Ticagrelor (Brilinta) 90 mg PO BID [facility] Last Admin: 03/20/19 21:01 Dose: 90 mg Documented by: Discharge Diet: Low fat/ Low Cholesterol Discharge Activity: Return to Normal Activity Home Medications: Medications to take at Discharge Aspirin E.C. [Ecotrin] 81 mg PO DAILY@0800 #90 tab 03/21/19 Atorvastatin Calcium [Lipitor] 80 mg PO QHS #90 tab 03/21/19 Losartan Potassium [Cozaar] 12.5 mg PO DAILY #90 tab 03/21/19 Metoprolol Tartrate [Lopressor (beta ifeoma)] 12.5 mg PO BID #90 tab 03/21/19 Ticagrelor [Brilinta] 90 mg PO BID #180 tab 03/21/19 Following Prescrptions Were Given to Patient: Ticagrelor [Brilinta] 90 mg PO BID #180 tab Transmission Status: Received by [id number] Losartan Potassium [Cozaar] 12.5 mg PO DAILY #90 tab Transmission Status: Received by [facility] Aspirin E.C. [Ecotrin] 81 mg PO DAILY@0800 #90 tab Transmission Status: Received by [facility] Atorvastatin Calcium [Lipitor] 80 mg PO QHS #90 tab Transmission Status: Received by [facility] Metoprolol Tartrate [Lopressor (beta ifeoma)] 12.5 mg PO BID #90 tab Transmission Status: Received by [id number] Other Amb Orders: Phase II, Outpatient Cardiac Rehab Location: None Selected Primary Care Physician: Lefty Day MD [Primary Care Provider] - Please Follow Up With: Reese Worrell MD When: Tuesday Disposition: Home Patient Condition:: Stable Medical Necessity - Tobacco Use Smoking Status: Never smoker Meaningful Use Info Meaningful Use Diagnoses (Choose all that apply): AMI - AMI Aspirin given w/in 24hrs of arrival?: Yes ASA at discharge?: Yes Statins at discharge?: Yes [place]/ARB at discharge?: Yes Beta Ifeoma at discharge?: Yes Done w/ Acute MA measure.: Yes Code Visit Inpatient E&M: 15248 Disch Hosp
--- NOTE | 2019-03-21 07:33 | PCM.DC ---
- Discharge Diagnoses Current Active Problems: Current Active and Chronic Problems (Last Updated 03/19/19 @ 08:52 by Jaida Garnett) Atherosclerosis of coronary artery of [place] heart without angina pectoris (Acute) History of coronary artery stent placement (Acute 03/19/19) PCI-MARILY of proximal LAD with a 4.0 x 16 Promus Synergy Stent 03/19/19 ST elevation myocardial infarction (STEMI) (Acute 03/19/19) You will use the following diet at home:: Cardiac Your food should be the consistency of: Regular Discharge Activity: Return to Normal Activity Call your doctor if you observe: Shortness of breath, Chest pain, Calf discomfort Allergies/Adverse Reactions: Allergies No Known Allergies Allergy (Verified 03/19/19 07:04) Medications to take at Discharge Aspirin E.C. [Ecotrin] 81 mg PO DAILY@0800 #90 tab 03/21/19 Atorvastatin Calcium [Lipitor] 80 mg PO QHS #90 tab 03/21/19 Losartan Potassium [Cozaar] 12.5 mg PO DAILY #90 tab 03/21/19 Metoprolol Tartrate [Lopressor (beta aletha)] 12.5 mg PO BID #90 tab 03/21/19 Ticagrelor [Brilinta] 90 mg PO BID #180 tab 03/21/19 The following prescriptions were given: Ticagrelor [Brilinta] 90 mg PO BID #180 tab Transmission Status: Received by [id number] Losartan Potassium [Cozaar] 12.5 mg PO DAILY #90 tab Transmission Status: Received by [facility] 181 Aspirin E.C. [Ecotrin] 81 mg PO DAILY@0800 #90 tab Transmission Status: Received by [facility] 181 Atorvastatin Calcium [Lipitor] 80 mg PO QHS #90 tab Transmission Status: Received by [facility] 181 Metoprolol Tartrate [Lopressor (beta aletha)] 12.5 mg PO BID #90 tab Transmission Status: Received by [id number] Orders to be completed after discharge: Phase II, Outpatient Cardiac Rehab Location: None Selected Primary Care Physician: Lefty Day MD [Primary Care Provider] - Please follow up with your Primary Care Physician in: in 5-7 days Test Results: Test results from this visit will be discussed in further detail at your follow-up appointment, if applicable. Please Follow Up With: Reese Worrell MD When: Elisa Proposed Discharge Date: 03/21/19
[2019-03-21 07:37] VITALS: O2SAT 97
[2019-03-21 08:19] VITALS: BP 105/72; PULSE 72; RESP 16; TEMP 36.9; O2SAT 97
[2019-03-21] MEDS: TICAGRELOR 90 MG TABLET PO (08:24)
[2019-03-21] MEDS: Losartan Potassium 25 MG Tablet 12.5 MG PO (08:24)
[2019-03-21] MEDS: Aspirin E.C. 81 MG Tablet PO (08:24)
[2019-03-21 08:25] VITALS: PULSE 72
[2019-03-21] MEDS: Metoprolol Tartrate 25 MG Tablet 12.5 MG PO (08:25)
[2019-03-21] MEDS: Famotidine 20 MG Tablet PO (08:25)
--- NOTE | 2019-03-21 09:38 | CASEMGMT ---
Pt to be sent home on Brilinta at discharge and [facility] and pt's insurance card info provided at this time as pt has no hx of prescriptions in the past. Per tech, co-pay for Brilinta is $381.96 for 30 days. Pt had already been provided with Brilinta co-pay card previously. This RN CM to room to update pt on Brilinta cost but pt has already been discharged at this time. SStaten KENN CM
--- NOTE | 2019-03-21 09:51 | PHA.DC.MR ---
Pharmacy Service has performed discharge medication reconciliation for this patient. Home Medications Aspirin E.C. [Ecotrin] 81 mg PO DAILY@0800 #90 tab 03/21/19 Atorvastatin Calcium [Lipitor] 80 mg PO QHS #90 tab 03/21/19 Losartan Potassium [Cozaar] 12.5 mg PO DAILY #90 tab 03/21/19 Metoprolol Tartrate [Lopressor (beta aletha)] 12.5 mg PO BID #90 tab 03/21/19 Ticagrelor [Brilinta] 90 mg PO BID #180 tab 03/21/19 The patient's discharge medication list was reviewed for discrepancies and discrepancies were resolved.
--- NOTE | 2019-03-21 10:00 | EKG12_ITS ---
Test Reason : AMEKG Blood Pressure : / mmHG Vent. Rate : 066 BPM Atrial Rate : 066 BPM P-R Int : 134 ms QRS Dur : 090 ms QT Int : 400 ms P-R-T Axes : 051 -11 002 degrees QTc Int : 419 ms Normal sinus rhythm with sinus arrhythmia Normal ECG Confirmed by JOAN BERRY, MOHAMUD ([id number]), assistant film editor ABDIRAHMAN GARCIA ([id number]) on 03/26/2019 10:03:42 AM Referred By: Scarlet Parsons Confirmed By:MOHAMUD FRANCO MD
== END 2019-03-21 09:43 | disposition home or self-care (01) | DRG 247 ==
LOC: ED 07:28 → ICU 07:44 → PCU 03-20 18:02
PROVIDERS: Internal Medicine Cardiovascular Disease; Admitting Provider Internal Medicine; Emergency Provider Emergency Medicine; Family Provider Family Medicine; PCP Family Medicine; Referring Provider Specialist; Visit Provider Specialist
DX: I21.19 ST elevation (STEMI) myocardial infarction involving other coronary artery of inferior wall (principal); I25.10 Atherosclerotic heart disease of native coronary artery without angina pectoris; E78.5 Hyperlipidemia, unspecified; Z23 Encounter for immunization; R73.9 Hyperglycemia, unspecified; N28.9 Disorder of kidney and ureter, unspecified; E66.3 Overweight; Z68.28 Body mass index [BMI] 28.0-28.9, adult
CPT/HCPCS: 80048; 80053; 80061; 82962; 83036; 84484; 85025; 85027; 85347; 85610; 85730; 92941; 93005; 93306; 93458; 97802; 99152; 99282; J7030; Q9957; 90686; A4216; C1725; C1757; C1769; C1874; C1887; C1894; C8929; C9606; J1327; Q9967

== ENCOUNTER → 2019-03-26 08:55 | Outpatient (CLI) | payer BC, SELFPAY ==
[2019-03-19 09:17] VITALS: BMI 28.5
[2019-03-19 13:30] VITALS: BMI 29.5
--- NOTE | 2019-03-26 09:06 | PCM.CR.ITP ---
General Information - General Information Admitting Diagnosis: STEMI, PCI - Education/Goals Barriers to Learning: None Individual Counseling: Initial Assessment: Abnormal Cholesterol Levels, Overweight/Obesity, Family History of Heart Disease (under 65 years) Cardiac Rehabilitation Goals: 1. Maintain the individual as the primary focus of care. 2. To improve the patient's quality of life. 3. Identification of cardiac risk factors and provide cardiac risk factor management. 4. Enhance the psychosocial status of the patient. 5. Reconditioning enough to allow the patient to resume customary activities. 6. Control symptoms of cardiac disease Scale for measuring improvement of personal goals: Enter appropriate number in Comments. 2 = Unchanged. 3 = Slightly Better. 4 = Moderate Improvement. 5 = Met my Goal Personal Goals: Initial Assessment: Other goal: - Monitor my exercise at previous level prior to returning Exercise - Initial Assessment - Visit Date of Eval: 03/26/19 - Stages of Change Stages of Change:: Action - Physician Prescribed Exercise Modalities: Treadmill, Biodyne, Rower, Airdyne, NuStep, SciFit Frequency (days/week): 3x/week for 12 weeks [36 sessions] Duration (Minutes):: 35-40 Intensity: 60-80% age predicted maximum heart rate reserve METs - Progression: 0.5-1.0 MET, RPE 11-14 WEEK: 0.5-1.0 Target Heart Rate:: 131-148 - Hypertension Do any of the following apply?: No - Intervention Home Exercise/Activity Goal:: Sitting Time <3 hrs/day - Education Goals:: Warm-up, RPE KOBI Scale, S/S, Safe Exercise, Self-Monitoring - Exercise Program Goals Exercise Program Goals: Aerobic Activity >30 min Nutrition - Initial Assessment - Program Goals Nutrition Program Goals: LDL <70. Total Cholesterol <200. HDL >45. Triglycerides <150. HgbA1C <7%. BMI <25 - Visit Date of Assessment:: 03/26/19 - Stages of Change Stages of Change:: Action - Lipids Total Cholesterol (mg/dL) Goal = less than 200 mg/dL: 229 HDL Cholesterol (mg/dL) Goal = less than 45 mg/dL: 57 LDL Cholesterol (mg/dL) Goal = less than 70 mg/dL: 155 Triglycerides (mg/dL) Goal = less than 150 mg/dL: 83 - Diabetes Diabetes:: No Hgb A1C: 5.6 - Weight Management Height: 5 ft 8 in Weight:: 196 lb Body Fat %:: 28.5 Total Score:: 1 - Intervention Referral to dietitian:: Yes Referral to Diabetic Clinic:: No Will attend diet classes:: Yes - Education Gave educational materials for:: Healthy eating Tobacco - Initial Assessment - Program Goals Tobacco Program Goals: Complete smoking cessation. Attend education classes. Improve Knowledge Test score - Stage of Change Stages of Change:: Maintenance - Learning Barriers Learning Barriers: Ready to Learn Total Score:: 20 - Tobacco Use Do you use smokeless tobacco?: No - Intervention Smoking Cessation Referral:: No Individual Education/Counseling:: No Education Schedule Given:: Yes - Education Attended class for:: Treating Heart Disease, How The Heart Works, What it means to have Heart Disease, How Coronary Artery Disease is Diagnosed, Heart Procedures, What Heart Medications Do, Risk Factors & Modifications, Living an Active Life, Nutrition, Emotions & Heart Disease, Stress Management & Relaxation, Sleep Disorders & Heart Disease Psychosocial - Initial Assess - Target Goals Target Goals: Assess presence or absence of depression. Using a valid screening tool, maximizes coping skills. Positive support system - Stages of Change Stages of Change:: Action - Psychosocial Test Tool Used:: HANDS Depression Questionnaire Self-reported stress:: yes Tests Completed: SF - 36 survey completed, Mood Scale Test Total Mood Screening Score:: 0 Self-Efficacy Score:: 9 - Intervention PS - Interventions: Yes Attend Stress Management Classes, Yes Uses Stress Management Skills, No Referral to Mental Health, No Referral to [facility] Case Management, No Referral to Physician - Education Gave educational materials for:: Coping techniques, Signs & symptoms of depression, Stress management, Relaxation techniques - Patient/Program Goal Preventative Medication(s):: Aspirin, BILLIE inhibitor, Clopidogrel, Beta aletha, Statin/lipid - Assistive Devices Assistive Devices:: None Fall Risk Assessed:: Yes Patient Health Questionnaire Initial Assessment 1. Little interest or pleasure in doing things: Not at all 2. Feeling down, depressed, or hopeless: Not at all 3. Trouble falling or staying asleep, or sleeping too much: Not at all 4. Feeling tired or having little energy: Not at all 5. Poor appetite or overeating: Not at all 6. Feeling bad about yourself -- or that you are a failure or have let yourself or your family down: Not at all 7. Trouble concentrating on things, such as reading the newspaper or watching television: Not at all 8. Moving or speaking so slowly that other people could have noticed. Or the opposite - being so fidgety or restless that you have been moving around a lot more than usual: Not at all 9. Thoughts that you would be better off , or of hurting yourself in some way: Not at all How difficult have these problems made it for you to do your work, take care of things at home, or get along with other people?: Not difficult at all Total Score: 0 LEYDI-Q SV Test - Statements CAD is a disease of the arteries in the heart: False Examples of risk factors for heart disease: True Angina is chest pain or discomfort: True The benefits of resistance training include: True Eating more meat and dairy products: False Anti-platelet medications such as aspirin are important: True The only effective way to manage stress: False An exercise warm-up slowly increases heart rate: True Prepared, processed foods usually have high sodium: True Depression is common after a heart attack: True The statin medications lower cholesterol: True To control blood pressure, lower the amount of sodium: True If someone gets chest discomfort during walking: False Transfats are partially hydrogenated vegetable oils: True Sleep apnea that is not treated increases the risk: False To control cholesterol, one should become a vegetarian: False Someone knows if he/she is exercising at the right level: True Diabetes cannot be prevented with exercise & health eating: False Stress is a large risk for heart attack: True A diet that can help lower blood pressure is rich in: True - Total Score Total Correct Responses: 20 Self-Efficacy Initial Assessment We would like to know how confident you are in doing certain activities. Please select your confidence level for:: Select your confidence level for the following using the scale 1-10 where 1 is not at all confident and 10 is totally confident. Your score is the average of all 6 responses. Fatigue: How confident are you that you can keep the fatigue caused by your disease from interfering with the things you want to do? Select Number: 8 Physical Discomfort or Pain: How confident are you that you can keep the physical discomfort or pain of your disease from interfering with the things you want to do? Select Number: 8 Emotional Distress: How confident are you that you can keep the emotional distress caused by your disease from interfering with the things you want to do? Select Number: 10 Other Symptoms or Health Problems: How confident are you that you can keep other symptoms or health problems from interfering with the things you want to do? Select Number: 10 Different Tasks and Activities: How confident are you that you can do the different tasks and activities needed to manage your health condition so as to reduce your need to see a doctor? Select Number: 10 Medication: How confident are you that you can do things other than just taking medication to reduce how much your illness affects your everyday life? Select Number: 10 Total Score:: 9 Nutrition Survey - Nutrition Survey Instructions Scoring Instructions: Scoring is as follows: Yes = 1 points. No = 0 point. Patient score that is >/=12 is considered to be at potential nutritional risk and could benefit from a referral to a registered dietitian. - Nutrition Survey Initial Have you lost >10 lbs over the past 2 months without trying?: No Are you following a special diet at home for diabetes, low fat, or low salt?: No Are you interested in meeting with a dietitian for help understanding your diet?: No Do you eat less than 3 meals a day?: No Do you eat fatty meats (richards, sausage, ribs, etc), fried foods, desserts, large amounts of salad dressings, margarine, butter, or cheese most days?: No Do you have food allergies? [Enter types in comment field]: No Do you eat in restaurants more than 3 times a week?: No Do you season food with salt, seasoning salt, or garlic salt?: No Do you used canned, boxed, frozen meals, or soups, seasoning packets?: Yes Total Score:: 1
--- NOTE | 2019-03-26 09:21 | PCM.CR.HP2 ---
<Chung Durand - Last Filed: 03/26/19 15:54> CR - History & Physical - General Referring Physician: DR. REESE WORRELL - History of Present Cardiac Event Onset Date: Enter Onset Date of cardiac illnesses in Comment field below - Medications Home Medications: Ambulatory Orders Medication Instructions Recorded aspirin 81 mg tablet,delayed 81 mg PO DAILY@0800 #90 tab 04/03/19 release atorvastatin 80 mg tablet 80 mg PO QHS #90 tab 04/03/19 losartan 25 mg tablet 12.5 mg PO DAILY #45 tab 04/03/19 metoprolol tartrate 25 mg tablet 12.5 mg PO BID #90 tab 04/03/19 ticagrelor 90 mg tablet 90 mg PO BID #180 tab 04/03/19 - Allergies Allergies/Adverse Reactions: Allergies No Known Allergies Allergy (Verified 04/03/19 11:06) Past Medical History - Past Medical Illness Medical History: Past Medical History (Last Updated 03/19/19 @ 08:52 by Jaida Garnett) Atherosclerosis of coronary artery of [place] heart without angina pectoris (Acute) I25.10 ST elevation myocardial infarction (STEMI) (Acute) Onset Date: 03/19/19 I21.3 - Past Surgical History Surgical History: Past Surgical History (Last Reviewed 03/19/19 @ 12:46 by Александр Flores MD) History of coronary artery stent placement (Acute) Onset Date: 03/19/19 Z95.5 PCI-MARILY of proximal LAD with a 4.0 x 16 Promus Synergy Stent 03/19/19 <Reese Worrell - Last Filed: 04/06/19 14:50> CR - History & Physical - History of Present Cardiac Event Onset Date: Enter Onset Date of cardiac illnesses in Comment field below - Sleep Disorder Evaluation Hx of Sleep Apnea: No Past Medical History - Past Medical Illness Medical History: Past Medical History (Last Reviewed 04/03/19 @ 08:41 by Minnie Napier) Atherosclerosis of coronary artery of [place] heart without angina pectoris (Acute) I25.10 ST elevation myocardial infarction (STEMI) (Acute) Onset Date: 03/19/19 I21.3 - Past Surgical History Surgical History: Past Surgical History (Last Reviewed 04/03/19 @ 08:41 by Minnie Napier) History of coronary artery stent placement (Acute) Onset Date: 11/18/19 Z95.5 PCI-MARILY of proximal LAD with a 4.0 x 16 Promus Synergy Stent 03/19/19 - Family History Summary Family History: Family History (Last Updated 04/03/19 @ 11:05 by Minnie Napier) Mother No problems noted. Father No family history of coronary artery disease Risk Factor Assessment - For Smoking Smoking Risk Guidelines: Smoking Low Risk: None or quit greater than 6 months ago. Smoking Moderate Risk: Smoker or quit 6 months or less ago. Smoking High Risk: Smoker - For Dyslipidemia Dyslipidemia Risk Guidelines: Low Risk: Moderate Risk: High Risk: 15-25% fat 25.1-29% fat >/= 30% fat. <7% sat fat 7-9% sat fat >9% sat fat. <150 mg chol 150-299 mg chol >/= 300 mg chol. LDL <100 LDL 100-129 LDL >/= 130. Chol/HDL ratio <5.0 Chol/HDL ratio 5.0-6.0 Chol/HDL ratio >6.0. Triglycerides <100 Triglycerides 100-149 Triglycerides >/= 150 - For Diabetes Mellitus Diabetes Risk Guidelines: Diabetes Low Risk: HgA1c <6.5% and/or FBG <120. Diabetes Moderate Risk: HgA1c 6.6-7.9% and/or FBG 120-180. Diabetes High Risk: HgA1c >/= 8% and/or FBG >180 - For Obesity/Overweight Obesity/Overweight Risk Guidelines: Obesity Low Risk: BMI <25.0. Obesity Moderate Risk: BMI 25-29.9. Obesity High Risk: BMI >/= 30.0 - For Hypertension Hypertension Risk Guidelines: Hypertension Low Risk: Systolic <120 and Diastolic <80. Hypertension Moderate Risk: Systolic 120-139 and Diastolic 80-89. Hypertension High Risk: Systolic >/= 140 and Diastolic >/= 90 - For Sedentary Lifestyle Sedentary Lifestyle Risk Guidelines: Sedentary Lifestyle Low Risk: >/= 1,500 kcal/week. Sedentary Lifestyle Moderate Risk: 700-1,499 kcal/week. Sedentary Lifestyle High Risk: < 700 kcal/week - For Depression Depression Risk Guidelines: Depression Low Risk: Not clinically depressed. Depression Moderate Risk: Mildly depressed. Depression High Risk: Clinically depressed - Family History Family History: Family History (Last Updated 04/03/19 @ 11:05 by Minnie Napier) Mother No problems noted. Father No family history of coronary artery disease <Marco Antonio Celestin - Last Filed: 04/06/19 15:05> CR - History & Physical - General Arrival date:: 03/26/19 Arrival time:: 09:22 Date of Referral:: 03/19/19 Date of CR Evaluation:: 03/26/19 Referring Physician: Dr. Saul Kessler Primary Diagnosis: STEMI, PCI - History of Present Cardiac Event Onset Date: Enter Onset Date of cardiac illnesses in Comment field below Current stable Angina Pectoris:: No Acute Myocardial Infarction within 12 months:: Yes - 03/19/19 Coronary Artery Bypass Graft:: No Heart valve replacement or repair:: No PTCA or coronary stenting:: Yes Heart or Heart-Lung Transplant:: No Heart Failure EF <35%:: No Type of Symptoms:: Chest pain Interventions with present event:: PCI Were there any complications?: no - Sleep Disorder Evaluation Do you snore loudly (louder than talking or can be heard through closed doors)?: No Do you often feel tired/ fatigued/ sleepy during daytime?: No Has anyone observed you stop breathing during sleep?: No History of Hypertension (for STOP score): No STOP Results: Negative Advanced Directives - Advanced Directives Power of Orientor: Yes Living Will: Yes Advance Directives Information Provided: Yes Advance Directives on File: No Past Medical History - Past Medical Illness Medical History: Past Medical History (Last Reviewed 04/03/19 @ 08:41 by Minnie Napier) Atherosclerosis of coronary artery of [place] heart without angina pectoris (Acute) I25.10 ST elevation myocardial infarction (STEMI) (Acute) Onset Date: 03/19/19 I21.3 - Past Surgical History Surgical History: Past Surgical History (Last Reviewed 04/03/19 @ 08:41 by Minnie Napier) History of coronary artery stent placement (Acute) Onset Date: 03/19/19 Z95.5 PCI-MARILY of proximal LAD with a 4.0 x 16 Promus Synergy Stent 03/19/19 Surgical History: no surgical history - Family History Summary Family History: Family History (Last Updated 04/03/19 @ 11:05 by Minnie Napier) Mother No problems noted. Father No family history of coronary artery disease Social History - Smoking History Smoking Status: Never smoker Hx Tobacco Use: No Hx Smoking Exposure: No - Alcohol Use Alcohol Usage: Yes - less than 1/week - Substance Abuse Hx Substance Use: No - Occupation Occupation (List type of work in comments):: Employed Returned to work on:: 04/02/19 - Hobbies, Recreation, Social Activities Hobbies: Exercise - running, tennis Recreational Activities: I am able to engage in most, but not all activities Social Environment - Status Marital Status: - Current Living Arrangements Living Environment:: Spouse - Children How many children do you have?: 3 Do any of your children live nearby?: Yes - Safety Do you feel safe in your surroundings?: Yes - Assistance Do you need any assistance at home?: no Review of Systems - Review of Systems Hints: Right click = Denies ([place]). Left click = Reports ([place]) Review of Present Symptoms: Reports: Wound Healing, Appetite - Normal, Appetite - Special Diet, Sleep - Normal, Sexual Changes. Denies: Shortness of Breath at Rest, Shortness of Breath with Exertion, PVD, Operative Discomfort, Angina, Dizziness/Lightheadedness, Fatigue, Heart Arrhythmia/Irregularities - Pain Is Patient Pain Free?: Yes Risk Factor Assessment - Vital Signs Pulse Ox: 95 - Pulse Pulse Rate: 54 Pulse Rhythm: Regular - Hypertension How long have you been treated?: no Blood Pressure Sitting - Right Arm: 114/70 Blood Pressure Sitting - Left Arm: 106/72 - Stress Stress: Work-related - Blood Cholesterol/Lipids Total Cholesterol (mg/dL) Goal = less than 200 mg/dL: 229 HDL Cholesterol (mg/dL) Goal = less than 40 mg/dL: 57 LDL Cholesterol (mg/dL) Goal = less than 70 mg/dL: 155 Triglycerides (mg/dL) Goal = less than 150 mg/dL: 83 - Obesity Height: 5 ft 8 in Weight:: 196 lb Weight in Pounds: 196.0 lbs Body Mass Index (BMI): 29.7 Desired Body Weight: 180 Realistic Weight Goal (Loss of 1-2 lbs/week): 180 Nutritional Referral for Obesity: Yes - Physical Inactivity Physical Inactivity: Reg Exercise 30 min/day - Risk Stratification Risk Guidelines: Lowest Risk: Risk Factor for Smoking, Risk Factor for Hypertension, Risk Factor for Sedentary Lifestyle, Risk Factor for Depression, Moderate Risk: Risk Factor for Dyslipidemia, Risk Factor for Diabetes, Risk Factor for Obesity - For Smoking Smoking Risk Guidelines: Smoking Low Risk: None or quit greater than 6 months ago. Smoking Moderate Risk: Smoker or quit 6 months or less ago. Smoking High Risk: Smoker - For Dyslipidemia Dyslipidemia Risk Guidelines: Low Risk: Moderate Risk: High Risk: 15-25% fat 25.1-29% fat >/= 30% fat. <7% sat fat 7-9% sat fat >9% sat fat. <150 mg chol 150-299 mg chol >/= 300 mg chol. LDL <100 LDL 100-129 LDL >/= 130. Chol/HDL ratio <5.0 Chol/HDL ratio 5.0-6.0 Chol/HDL ratio >6.0. Triglycerides <100 Triglycerides 100-149 Triglycerides >/= 150 - For Diabetes Mellitus Diabetes Risk Guidelines: Diabetes Low Risk: HgA1c <6.5% and/or FBG <120. Diabetes Moderate Risk: HgA1c 6.6-7.9% and/or FBG 120-180. Diabetes High Risk: HgA1c >/= 8% and/or FBG >180 - For Obesity/Overweight Obesity/Overweight Risk Guidelines: Obesity Low Risk: BMI <25.0. Obesity Moderate Risk: BMI 25-29.9. Obesity High Risk: BMI >/= 30.0 - For Hypertension Hypertension Risk Guidelines: Hypertension Low Risk: Systolic <120 and Diastolic <80. Hypertension Moderate Risk: Systolic 120-139 and Diastolic 80-89. Hypertension High Risk: Systolic >/= 140 and Diastolic >/= 90 - For Sedentary Lifestyle Sedentary Lifestyle Risk Guidelines: Sedentary Lifestyle Low Risk: >/= 1,500 kcal/week. Sedentary Lifestyle Moderate Risk: 700-1,499 kcal/week. Sedentary Lifestyle High Risk: < 700 kcal/week - For Depression Depression Risk Guidelines: Depression Low Risk: Not clinically depressed. Depression Moderate Risk: Mildly depressed. Depression High Risk: Clinically depressed - Family History Family History: Family History (Last Updated 04/03/19 @ 11:05 by Minnie Napier) Mother No problems noted. Father No family history of coronary artery disease Motivation - Motivation to Participate On a scale of 1 to 10, how prepared are you to commit to attending program?: 10
[2019-03-26 09:37] VITALS: BP 106/72; BP 114/70; PULSE 54; O2SAT 95; BMI 29.7
== END ==
PROVIDERS: Family Provider Family Medicine; PCP Family Medicine; Referring Provider Internal Medicine Cardiovascular Disease; Visit Provider Internal Medicine Cardiovascular Disease
DX: R07.9 Chest pain, unspecified (principal); I25.2 Old myocardial infarction; Z95.5 Presence of coronary angioplasty implant and graft

== ENCOUNTER 2019-03-28 06:33 | Outpatient (RCR) | payer BC, SELFPAY ==
[2019-03-19 13:30] VITALS: BMI 29.5
[2019-03-26 09:37] VITALS: BMI 29.7
== END 2019-03-31 23:59 ==
LOC: CR 06:33
PROVIDERS: Family Provider Family Medicine; PCP Family Medicine; Referring Provider Internal Medicine Cardiovascular Disease; Visit Provider Internal Medicine Cardiovascular Disease
DX: I25.10 Atherosclerotic heart disease of native coronary artery without angina pectoris (principal); I21.3 ST elevation (STEMI) myocardial infarction of unspecified site; Z95.5 Presence of coronary angioplasty implant and graft
CPT/HCPCS: 93798

== ENCOUNTER 2019-04-27 15:15 | Outpatient (RCR) | payer BC, SELFPAY ==
[2019-03-19 13:30] VITALS: BMI 29.5
[2019-03-26 09:37] VITALS: BMI 29.7
--- NOTE | 2019-04-27 09:13 | CR.ITP_ITS ---
Exercise - Final/Discharge - Visit Date of Eval: 04/27/19 Session #:: 3 - Patient ending his CR on 04/30/2019 - Physician Prescribed Exercise Modalities: Treadmill, Rower, Airdyne Frequency (days/week): 1 Duration (Minutes):: 30-45 Intensity: 60-80% age predicted maximum heart rate reserve METs - Progression: 0.5-1.0 MET, RPE 11-14 WEEK: 7 Target Heart Rate:: 131-148 - Hypertension Resting Blood Pressure:: 106/62 Peak Exercise Blood Pressure:: 140/90 - Intervention Home Exercise/Activity Goal:: Moderate Exercise 30 min/day x 5 days/wk - Exercise Program Goals Exercise Program Goals: Aerobic Activity >30 min Nutrition - Final Assessment - Program Goals Nutrition Program Goals: LDL <70. Total Cholesterol <200. HDL >45. Triglycerides <150. HgbA1C <7%. BMI <25 - Visit Date of Eval: 04/27/19 - Lipids Total Cholesterol (mg/dL) Goal = less than 200 mg/dL: 0 - no additonal levels available - Diabetes Diabetes:: No - Weight Management Height: 5 ft 8.11 in Weight:: 195 lb - unchanged Body Fat %:: 28.5 Goal % Body Fat:: 26 Tobacco - Initial Assessment - Program Goals Tobacco Program Goals: Complete smoking cessation. Attend education classes. Improve Knowledge Test score - Learning Barriers Learning Barriers: Ready to Learn Tobacco - Final Assessment - Program Goals Tobacco Program Goals: Complete smoking cessation. Attend education classes. Improve Knowledge Test score - Stage of Change Stages of Change:: Action - Family Support Do you have family support?: Yes - Tobacco Use Tobacco Use: Non-smoker Do you use smokeless tobacco?: No - Intervention Smoking Cessation Referral:: No Individual Education/Counseling:: No Education Schedule Given:: Yes - Education Education Goal Reached?: Yes Psychosocial - Initial Assess - Target Goals Target Goals: Assess presence or absence of depression. Using a valid screening tool, maximizes coping skills. Positive support system - Psychosocial Test Tool Used:: HANDS Depression Questionnaire - Assistive Devices Fall Risk Assessed:: Yes Psychosocial - Final Assessmen - Target Goals Target Goals: Assess presence or absence of depression. Using a valid screening tool, maximizes coping skills. Positive support system - Stages of Change Stages of Change:: Action - Psychosocial Test Tool Used:: HANDS Depression Questionnaire - Intervention PS - Interventions: Yes Attend Stress Management Classes, Yes Uses Stress Management Skills, No Referral to Mental Health, No Referral to [facility] Case Management, No Referral to Physician - Education Education Goal Reached?: Yes - Patient/Program Goal Preventative Medication(s):: Aspirin, BILLIE inhibitor, Clopidogrel, Beta aletha, Statin/lipid - patinet knowledgable and takes medications regularly. - Assistive Devices Assistive Devices:: None Fall Risk Assessed:: Yes Patient Health Questionnaire Discharge Assessment 1. Little interest or pleasure in doing things: Not at all 2. Feeling down, depressed, or hopeless: Not at all 3. Trouble falling or staying asleep, or sleeping too much: Not at all 4. Feeling tired or having little energy: Not at all 5. Poor appetite or overeating: Not at all 6. Feeling bad about yourself -- or that you are a failure or have let yourself or your family down: Not at all 7. Trouble concentrating on things, such as reading the newspaper or watching television: Not at all 8. Moving or speaking so slowly that other people could have noticed. Or the opposite - being so fidgety or restless that you have been moving around a lot more than usual: Not at all 9. Thoughts that you would be better off , or of hurting yourself in some way: Not at all Total Score: 0 LEYDI-Q SV Test - Statements CAD is a disease of the arteries in the heart: False Examples of risk factors for heart disease: True Angina is chest pain or discomfort: True The benefits of resistance training include: True Eating more meat and dairy products: False Anti-platelet medications such as aspirin are important: True The only effective way to manage stress: False An exercise warm-up slowly increases heart rate: True Prepared, processed foods usually have high sodium: True Depression is common after a heart attack: True The statin medications lower cholesterol: True To control blood pressure, lower the amount of sodium: True If someone gets chest discomfort during walking: False Transfats are partially hydrogenated vegetable oils: True Sleep apnea that is not treated increases the risk: False To control cholesterol, one should become a vegetarian: False Someone knows if he/she is exercising at the right level: True Diabetes cannot be prevented with exercise & health eating: False Stress is a large risk for heart attack: True A diet that can help lower blood pressure is rich in: True - Total Score Total Correct Responses: 20 Self-Efficacy Discharge Assessment We would like to know how confident you are in doing certain activities. Please select your confidence level for:: Select your confidence level for the following using the scale 1-10 where 1 is not at all confident and 10 is totally confident. Your score is the average of all 6 responses. Fatigue: How confident are you that you can keep the fatigue caused by your disease from interfering with the things you want to do? Select Number: 10 Physical Discomfort or Pain: How confident are you that you can keep the physical discomfort or pain of your disease from interfering with the things you want to do? Select Number: 10 Emotional Distress: How confident are you that you can keep the emotional distress caused by your disease from interfering with the things you want to do? Select Number: 10 Other Symptoms or Health Problems: How confident are you that you can keep other symptoms or health problems from interfering with the things you want to do? Select Number: 10 Different Tasks and Activities: How confident are you that you can do the different tasks and activities needed to manage your health condition so as to reduce your need to see a doctor? Select Number: 10 Medication: How confident are you that you can do things other than just taking medication to reduce how much your illness affects your everyday life? Select Number: 10 Total Score:: 10 Nutrition Survey - Nutrition Survey Instructions Scoring Instructions: Scoring is as follows: Yes = 1 points. No = 0 point. Patient score that is >/=12 is considered to be at potential nutritional risk and could benefit from a referral to a registered dietitian. - Nutrition Survey Discharge Have you lost >10 lbs over the past 2 months without trying?: No Are you following a special diet at home for diabetes, low fat, or low salt?: No Are you interested in meeting with a dietitian for help understanding your diet?: No Do you eat less than 3 meals a day?: No Do you eat fatty meats (richards, sausage, ribs, etc), fried foods, desserts, large amounts of salad dressings, margarine, butter, or cheese most days?: No Do you have food allergies? [Enter types in comment field]: No Do you eat in restaurants more than 3 times a week?: No Do you season food with salt, seasoning salt, or garlic salt?: No Do you used canned, boxed, frozen meals, or soups, seasoning packets?: No Total Score:: 0
[2019-04-27 09:24] VITALS: BP 106/62; BP 140/90
== END 2019-05-01 23:59 ==
LOC: CR 15:15
PROVIDERS: Family Provider Family Medicine; PCP Family Medicine; Referring Provider Internal Medicine Cardiovascular Disease; Visit Provider Internal Medicine Cardiovascular Disease
DX: I25.10 Atherosclerotic heart disease of native coronary artery without angina pectoris (principal); I21.3 ST elevation (STEMI) myocardial infarction of unspecified site; Z95.5 Presence of coronary angioplasty implant and graft
CPT/HCPCS: 93798

== ENCOUNTER 2019-07-23 22:19 | Emergency (ER) | payer BC, SELFPAY ==
[2019-03-19 13:30] VITALS: BMI 29.5
[2019-04-03 11:01] VITALS: BMI 29.3
[2019-07-23 22:20] VITALS: BP 144/67; PULSE 56; RESP 16; TEMP 37; O2SAT 96; BMI 29.1
--- NOTE | 2019-07-23 22:39 | CT_ITS ---
STUDY: CT ABDOMEN AND PELVIS WITHOUT CONTRAST REASON FOR EXAM: Male, 49 years old. Right lower quadrant pain. Vomiting. RADIATION DOSAGE (If Supplied By Facility): CTDIvol = ( 10.32 ) mGy, DLP = ( 539.08 ) mGycm TECHNIQUE: Transaxial images were obtained from the dome of the diaphragm to the symphysis pubis without oral contrast, and without intravenous contrast. Sagittal and coronal images were reconstructed. Individualized dose optimization techniques were used for this CT. COMPARISON: None. FINDINGS: The visualized lung bases are unremarkable. The visualized portions of the heart are within normal limits. Normal liver. Normal gallbladder and extrahepatic biliary system. Normal spleen. Normal pancreas. Normal bilateral adrenal glands. The right kidney is of normal size and cortical thickness. There is mild stranding of the perinephric fat. There is mild hydronephrosis and ureteral dilatation to the right eye pelvic sidewall where there is nonobstructing 3 mm calculus (image 133, series 2). Normal left kidney. Normal left ureter. Normal visualized stomach. Normal small intestine. Normal colon. The appendix is visualized and appears normal. Minimal atherosclerotic changes of the abdominal aorta and iliac arteries without aneurysm. Normal inferior vena cava. Normal retroperitoneum. The urinary bladder is collapsed. The prostate is mildly enlarged with central calcifications. There are phleboliths in the pelvis without lymphadenopathy. No free air or free fluid is seen within the peritoneal cavity. Umbilical hernia of omental fat. The abdominal wall is otherwise unremarkable. There are diffuse degenerative changes of the visualized lumbar spine. CT/Abdomen/Pelvis without Cont IMPRESSION: 1. Distal right ureteral calculus with mild obstructive uropathy. 2. Minimal atherosclerotic changes on the abdominal aorta and iliac arteries. 3. Mild degenerative changes of the lumbar spine. 4. Mildly enlarged prostate. Electronically Signed: Abdirahman Macias DO at 23:43 EDT Tel [phone], Service support ,
--- NOTE | 2019-07-23 22:41 | ED.VISSUMM ---
- ER Visit Summary Date of Service: 07/23/19 Chief Complaint: Left flank pain History of Present Illness: The patient is a 49 M history of CAD with 1 stent on Dilantin and aspirin. Around 8 PM tonight patient developed right flank pain. He is never had a kidney stone before. He believes he may have 1 now. He had one episode of nausea and vomiting secondary to the pain. Denies any fever. No dysuria. No diarrhea. Physical Examination: Middle-aged male with right flank pain. Vital signs are stable afebrile. H EENT exam is unremarkable. Neck nontender no lymphadenopathy. Lungs clear to auscultation. Heart regular rhythm no murmur. Abdomen is soft and nontender. Extremities moves all 4. Calves nontender without edema or cords. Neurologically is awake and alert with no focal motor deficits. He is up walking about the room. Test Results: CBC were normal white count 9. Hemoglobin 14. Chemistries unremarkable creatinine 1.3 normal gap. Last creatinine was 1. UA shows blood but no signs of infection. CAT scan flank study shows a distal left ureteral calculi at 3 mm. No obstruction. I discussed all test results with the patient. Emergency Department Course and Treatment: He will be started. CAT scan labs are being obtained. I do clinically feel this is most likely a right ureteral calculi. Since he is never had one I do feel imaging and labs are necessary. Also due to the fact that he is on blood thinners and having hematuria. Patient is improving. He was given a second dose of Dilaudid. Currently at 1 AM he is doing well. Pain is manageable. He is comfortable being discharged to home. He will follow-up with urology tomorrow as needed. I spoke to urologist workers compensation consultant. Treatment Plan: [place] for pain. Flomax. Follow-up with urology as needed Disposition: Discharge Impression: Acute left flank pain secondary to left distal ureteral 3 mm stone History of CAD on Brilinta with a stent This note was generated with [employer] dictation software. It may contain incorrect words, spelling, and punctuation that were not noted in review of the chart prior to signing ED Disposition - Plan for ED Patient: Referrals: Lefty Day MD [Primary Care Provider] -
[2019-07-23] MEDS: HYDROmorphone 1 MG/ML Syringe IV ×2 (22:47→23:50)
[2019-07-23] MEDS: Ondansetron 4 MG/2 ML Vial IV (22:47)
[2019-07-23 22:50] LABS: Mucous, Urine 0 SEEN /hpf (<or=2+)
[2019-07-23 22:53] LABS: Color, Urine Red (Yellow); Glucose, Dipstick Normal (Normal); Ketone-Dipstick 15 mg/dl (Negative); Leukocyte Esterase-Dipstick 25 /ul (Negative); Nitrite-Dipstick Negative (Negative); Occult Blood-Urine 250 /ul (Negative); Protein-Dipstick 500 mg/dl (Negative); Specific Gravity, Urine 1.025 (1.002-1.030); Urine Bilirubin Dipstick Negative (Negative); Urine Clarity Cloudy (Clear); Urine Urobilinogen Normal (Normal); Urine pH 6.5 (5.0 - 8.0)
[2019-07-23 22:55] LABS: Hematocrit 45.1 % (40-54); Hemoglobin 14.7 g/dL (13.0-16.5); Mean Corp Hgb Conc 32.6 g/dL (32-36); Mean Corpuscular Hgb 30.6 pg (27.0-32.0); Mean Corpuscular Volume 93.8 fL (80-94); Mean Platelet Vol. 12.8 fl (6.2-12.0); Platelet Count 170 K/mm3 (150-450); RBC Distribution Width CV 12.2 % (11.6-14.6); RBC Distribution Width SD 42.2 fl (35.1-43.9); Red Blood Count 4.81 M/mm3 (4.6-6.2); White Blood Count 9.2 K/mm3 (4.4-11.0)
[2019-07-23 22:59] LABS: Red Blood Cells-Urine > 100 SEEN /hpf (0-5); White Blood Cells 0-5 SEEN /hpf (0-5)
[2019-07-23 23:00] LABS: Bacteria 1+ /hpf (None Seen); Calcium Oxalate Crystals Ur 1+ /hpf (<or=2+); Squamous Epithelial Cells - UA 0-5 SEEN /hpf (0-5)
[2019-07-23 23:05] LABS: Anion Gap 6 (5-15); BUN 21 mg/dL (7-18); BUN/Creat Ratio 15.9 RATIO (10-20); Chloride 110 mmol/L (98-107); Creatinine, Serum 1.32 mg/dL (0.70-1.30); EST Glomerular Filtration Rate 62 mL/min (>60); Est Glom Filt Rate - Afr Amer 74 mL/min (>60); Estimated Creatinine Clearance 66.21 ml/min; Glucose 164 mg/dL (74-106); Potassium 3.6 mmol/L (3.5-5.1); Sodium Level 143 mmol/L (136-145)
[2019-07-24 00:58] VITALS: BP 132/94; PULSE 65; RESP 16; O2SAT 97
--- NOTE | 2019-07-24 01:07 | DCINST.ED_ITS ---
ED Disposition - Plan for ED Patient: Disposition: Home or Assisted Living Instructions: KIDNEY STONE w/ Colic Prescriptions: Tamsulosin HCl [Flomax] 0.4 mg PO DAILY #5 cap Prescription Printed Hydrocodone/Acetaminophen [[place] 5-325 Tablet] 1 ea PO Q4H PRN PRN #10 tab PRN Reason: Pain Or Fever Prescription Printed Referrals: Lefty Day MD [Primary Care Provider] - As Needed Clarence Enriquez MD [STAFF PHYSICIAN] - As Needed Additional Instructions: Plenty of fluids and rest. [place] for pain. Flomax daily. Call and follow-up with Dr. Enriquez
[2019-07-24 01:17] VITALS: BP 132/94; PULSE 65; RESP 16; O2SAT 97
== END 2019-07-24 01:17 | disposition home or self-care (01) ==
PROVIDERS: Emergency Provider Emergency Medicine; PCP Family Medicine
DX: N20.1 Calculus of ureter (principal); I25.10 Atherosclerotic heart disease of native coronary artery without angina pectoris; I25.2 Old myocardial infarction; Z79.82 Long term (current) use of aspirin; Z79.02 Long term (current) use of antithrombotics/antiplatelets; Z79.899 Other long term (current) drug therapy; Z95.5 Presence of coronary angioplasty implant and graft
CPT/HCPCS: 74176; 80048; 81001; 85027; 96372; 99283; A4216; J2405